=== PATIENT | female | born 1975 | race Caucasian/White ===

== ENCOUNTER 2019-05-28 09:04 | Inpatient (IN) | payer SELFPAY ==
[2019-05-28] VITALS (8 sets, daily range): BP systolic 114–153; BP diastolic 69–93
[~2019-05-28] VITALS: Ht 160 cm; Wt 94.3 kg
[2019-05-28] MEDS ORDERED: PANTOPRAZOLE IV PUSH 40 MG VIAL. IVP ONE (09:45)
[2019-05-28] MEDS ORDERED: ONDANSETRON PF 4 MG/2 ML VIAL. IV ONE (09:45)
[2019-05-28 09:49] LABS: BILIRUBIN,URINE NEGATIVE (NEG); CLARITY,URINE CLEAR; COLOR,URINE YELLOW; NITRITE,URINE NEGATIVE (NEG); PROTEIN,URINE NEGATIVE (NEG-TRACE)
[2019-05-28 09:57] LABS: BASO # 0.1 x10^3/uL (0.0-0.2); BASO % 1 % (0-3); EOS % 1 % (0-3); LYMPH % 23 % (24-48); MEAN CORPUSCULAR HEMOGLOBIN 18 pg (25-35); MEAN CORPUSCULAR HGB CONC 28 g/dL (31-37); MEAN CORPUSCULAR VOLUME 64 fL (79-100); MONO # 0.4 x10^3/uL (0.0-1.1); MONO % 10 % (0-9); NEUT # 2.7 x10^3/uL (1.8-7.7); NEUT % 64 % (31-73); PLATELET COUNT 206 x10^3/uL (140-400); RED BLOOD COUNT 2.29 x10^6/uL (3.50-5.40); RED CELL DISTRIBUTION WIDTH 22.7 % (11.5-14.5); WHITE BLOOD COUNT 4.2 x10^3/uL (4.0-11.0)
[2019-05-28 10:05] LABS: BACTERIA,URINE FEW /HPF (0-FEW); RBC,URINE 0 /HPF (0-2); SQUAMOUS EPITHELIAL CELL,UR FEW /LPF
--- NOTE | 2019-05-28 10:10 | RAD ---
PORTABLE CHEST 1V Clinical indications: Generalized weakness. Shortness of breath COMPARISON: None available. Findings: There is a radiodensity of the medial left lung base. Right lung field is clear. No pleural effusion or pneumothorax or perihilar pulmonary edema is seen. The heart size is prominent some of which is due to AP magnification and lordotic positioning. The pulmonary vasculature, mediastinum and both aron are unremarkable. Impression: Radiodensity of the medial left lung base. This could represent a lung infiltrate or lung mass or hiatal hernia. Chest CT with IV contrast is recommended for further evaluation. Electronically signed by: Edvin Swanson MD (05/28/2019 10:07 AM) [id number]
[2019-05-28 10:16] LABS: CALCIUM 8.4 mg/dL (8.5-10.1); CREATININE 0.7 mg/dL (0.6-1.0); GFR 90.5; POTASSIUM 3.8 mmol/L (3.5-5.1)
--- NOTE | 2019-05-28 10:18 | PHYS DOC ---
Past Medical History Past Medical History: Anemia, GERD Past Surgical History: , Tubal ligation Alcohol Use: Occasionally Drug Use: Marijuana, Methamphetamine Adult General Chief Complaint Chief Complaint: WEAKNESS/GENERALIZED HPI HPI Patient is a 43 year old female patient with history of hiatal hernia, GERD, anemia and previous blood transfusion who presents with complaint of generalized weakness and anemia. Patient states for the last 1 week she has had generalized weakness and decrease of energy associated with exertion or shortness of breath and palpitation and thinks she has no blood at needs blood transfusion. Patient states she had the same episode of anemia previously related to GI bleeding with hiatal hernia and GERD and had blood transfusion. Patient denies hematemesis and melena, hematuria, ecchymosis, chest pain, fever and chills, focal neuro deficit. Review of Systems Review of Systems Constitutional: Denies fever or chills, reports generalized weakness [] Eyes: Denies change in visual acuity, redness, or eye pain [] HENT: Denies nasal congestion or sore throat [] Respiratory: Denies cough, reports shortness of breath [] Cardiovascular: No additional information not addressed in HPI [] GI: Denies abdominal pain, nausea, vomiting, bloody stools or diarrhea [] : Denies dysuria or hematuria [] Musculoskeletal: Denies back pain or joint pain [] Integument: Denies rash or skin lesions [] Neurologic: Denies headache, focal weakness or sensory changes [] Endocrine: Denies polyuria or polydipsia [] All other systems were reviewed and found to be within normal limits, except as documented in this note. Current Medications Current Medications Current Medications Medications (Trade) Dose Ordered Sig/Royal Start Time Stop Time Status Last Admin Dose Admin Ondansetron HCl (Zofran) 4 mg 1X ONCE 05/28/19 09:45 05/28/19 09:46 DC 05/28/19 10:07 4 MG Pantoprazole Sodium (PROTONIX VIAL for IV PUSH) 40 mg 1X ONCE 05/28/19 09:45 05/28/19 09:46 DC 05/28/19 10:08 40 MG Allergies Allergies Allergies Coded Allergies Type Severity Reaction Last Updated Verified No Known Drug Allergies 05/28/19 No Physical Exam Physical Exam Constitutional: Well developed, well nourished, mild distress, non-toxic appearance, pallor. [] HENT: Normocephalic, atraumatic. Eyes: PERRLA, EOMI, conjunctiva normal, no discharge, pale .. [] Neck: Normal range of motion, no tenderness, supple, no stridor. [] Cardiovascular: Tachycardia, no murmur [] Lungs & Thorax: Bilateral breath sounds clear to auscultation [] Abdomen: Bowel sounds normal, soft, no tenderness, no masses, no pulsatile masses. Rectal exam in present of tail trimmer showed no gross blood. Skin: Warm, dry, no erythema, no rash. [] Back: No tenderness, no CVA tenderness. [] Extremities: No tenderness, no cyanosis, no clubbing, ROM intact, no edema. [] Neurologic: Alert and oriented X 3, no focal deficits noted. [] Psychologic: Affect normal, judgement normal, mood normal. [] Current Patient Data Vital Signs Vital Signs Date Time Temp Pulse Resp B/P (MAP) Pulse Ox O2 Delivery O2 Flow Rate FiO2 05/28/19 09:50 106 20 98 05/28/19 09:28 97.8 153/96 (115) Room Air 97.8 Lab Values Laboratory Tests Test 05/28/19 09:25 05/28/19 09:26 05/28/19 09:45 Urine Collection Type Unknown Urine Color Yellow Urine Clarity Clear Urine pH 6.0 Urine Specific [place] 1.015 Urine Protein Negative mg/dL (NEG-TRACE) Urine Glucose (UA) Negative mg/dL (NEG) Urine Ketones (Stick) Negative mg/dL (NEG) Urine Blood Negative (NEG) Urine Nitrite Negative (NEG) Urine Bilirubin Negative (NEG) Urine Urobilinogen Dipstick 1.0 mg/dL (0.2 mg/dL) Urine Leukocyte Esterase Trace (NEG) Urine RBC 0 /HPF (0-2) Urine WBC 1-4 /HPF (0-4) Urine Squamous Epithelial Cells Few /LPF Urine Bacteria Few /HPF (0-FEW) Urine Mucus Marked /LPF POC Urine HCG, Qualitative Hcg negative (Negative) White Blood Count 4.2 x10^3/uL (4.0-11.0) Red Blood Count 2.28 x10^6/uL (3.50-5.70) L Hemoglobin 4.1 g/dL (12.0-15.5) *L Hematocrit 14.7 % (36.0-47.0) *L Mean Corpuscular Volume 64 fL (79-100) L Mean Corpuscular Hemoglobin 18 pg (25-35) L Mean Corpuscular Hemoglobin Concent 28 g/dL (31-37) L Red Cell Distribution Width 22.7 % (11.5-14.5) H Platelet Count 206 x10^3/uL (140-400) Neutrophils (%) (Auto) 64 % (31-73) Lymphocytes (%) (Auto) 23 % (24-48) L Monocytes (%) (Auto) 10 % (0-9) H Eosinophils (%) (Auto) 1 % (0-3) Basophils (%) (Auto) 1 % (0-3) Neutrophils # (Auto) 2.7 x10^3/uL (1.8-7.7) Lymphocytes # (Auto) 1.0 x10^3/uL (1.0-4.8) Monocytes # (Auto) 0.4 x10^3/uL (0.0-1.1) Eosinophils # (Auto) 0.0 x10^3/uL (0.0-0.7) Basophils # (Auto) 0.1 x10^3/uL (0.0-0.2) Platelet Estimate Adequate (ADEQUATE) Polychromasia Present Hypochromasia Present Poikilocytosis Present Anisocytosis Present Microcytosis Present Macrocytosis Present Ovalocytes Present Absolute Reticulocyte Count 0.123 x10^6/uL (0.020-0.120) Percent Reticulocyte Count 5.4 % (0.5-2.3) H Immature Reticulocyte Fraction 0.59 (0.20-0.60) Prothrombin Time 13.4 SEC (11.7-14.0) Prothrombin Time INR 1.1 (0.8-1.1) Activated Partial Thromboplast Time 29 SEC (24-38) Sodium Level 139 mmol/L (136-145) Potassium Level 3.8 mmol/L (3.5-5.1) Chloride Level 103 mmol/L (98-107) Carbon Dioxide Level 25 mmol/L (21-32) Anion Gap 11 (6-14) Blood Urea Nitrogen 17 mg/dL (7-20) Creatinine 0.7 mg/dL (0.6-1.0) Estimated GFR (Cockcroft-Gault) 90.5 BUN/Creatinine Ratio 24 (6-20) H Glucose Level 115 mg/dL (70-99) H Calcium Level 8.4 mg/dL (8.5-10.1) L Iron Level 12 ug/dL (50-170) L Total Iron Binding Capacity 650 ug/dL (250-450) H Iron Saturation 2 % (15-34) L Total Bilirubin 0.8 mg/dL (0.2-1.0) Aspartate Amino Transferase (AST) 14 U/L (15-37) L Alanine Aminotransferase (ALT) 11 U/L (14-59) L Alkaline Phosphatase 98 U/L (46-116) Troponin I Quantitative < 0.017 ng/mL (0.000-0.055) XE-Hbp-O-Type Natriuretic Peptide 1444 pg/mL (0-124) H Total Protein 7.0 g/dL (6.4-8.2) Albumin 3.2 g/dL (3.4-5.0) L Albumin/Globulin Ratio 0.8 (1.0-1.7) L Lipase 86 U/L (73-393) Vitamin B12 Level 312 pg/mL (247-911) Laboratory Tests 05/28/19 09:45 Laboratory Tests 05/28/19 09:45 EKG EKG EKG interpreted by me. EKG at 0931 showed sinus tachycardia at rate of 102, normal [place] and QT intervals, abnormal left axis deviation, left anterior fascicular block, LVH, poor R-wave progress in anteroseptal leads, no acute ST and T-wave elevation. Radiology/Procedures Radiology/Procedures [facility] [address] [place] [address] IMAGING REPORT Signed PATIENT: YUMIKO INIGUEZ ACCOUNT: [id number] : 1975 LOCATION: ER AGE: 43 SEX: F EXAM STATUS: REG ER ORD. PHYSICIAN: ESTELITA HERNANDEZ MD REASON: generalized weakness, shortness of breath PROCEDURE: PORTABLE CHEST 1V PORTABLE CHEST 1V Clinical indications: Generalized weakness. Shortness of breath COMPARISON: None available. Findings: There is a radiodensity of the medial left lung base. Right lung field is clear. No pleural effusion or pneumothorax or perihilar pulmonary edema is seen. The heart size is prominent some of which is due to AP magnification and lordotic positioning. The pulmonary vasculature, mediastinum and both aron are unremarkable. Impression: Radiodensity of the medial left lung base. This could represent a lung infiltrate or lung mass or hiatal hernia. Chest CT with IV contrast is recommended for further evaluation. Electronically signed by: Josselin Swanson MD (05/28/2019 10:07 AM) [id number] DICTATED and SIGNED BY: JOSSELIN SWANSON MD DATE: 05/28/19 1007 Course & Med Decision Making Course & Med Decision Making Pertinent Labs and Imaging studies reviewed. (See chart for details) Evaluation of patient in ER showed 43-year-old female patient with history of blood transfusion presented with complaining of vomiting which weakness and exertional shortness of breath and palpitations without chest pain. Patient had hemoglobin of 4.6 and blood for transfusion was requested.Patient requiring admission for further evaluation and treatment. Discussed with Dr. Sevilla who is in agreement with admission. Discussed findings and plan with patient and family, who acknowledge understanding and agreement. Dragon Disclaimer Dragon Disclaimer This electronic medical record was generated, in whole or in part, using a voice recognition dictation system. Departure Departure Impression: Primary Impression: Severe anemia Additional Impressions: Hypoalbuminemia Elevated brain natriuretic peptide (BNP) level Disposition: ADMITTED INPATIENT (@1028) Admitting Physician: ZEYNEP (Dr. Sevilla accepted admission at 1027) Condition: STABLE Referrals: NO PCP (PCP) Problem Qualifiers ESTELITA HERNANDEZ MD May 28, 2019 10:18
[2019-05-28 10:20] LABS: HEMATOCRIT 14.7 % (36.0-47.0); HEMOGLOBIN 4.1 g/dL (12.0-15.5)
[2019-05-28 10:25] LABS: ALBUMIN 3.2 g/dL (3.4-5.0); ALBUMIN/GLOBULIN RATIO 0.8 (1.0-1.7); TOTAL BILIRUBIN 0.8 mg/dL (0.2-1.0)
[2019-05-28 10:33] LABS: ANISOCYTOSIS PRESENT; HYPOCHROMIA PRESENT; MICROCYTOSIS PRESENT; OVALOCYTES PRESENT; PLT ESTIMATE ADEQUATE (ADEQUATE); POIKILOCYTOSIS PRESENT; POLYCHROMASIA PRESENT
[2019-05-28 10:40] LABS: PROTHROMBIN TIME PATIENT 13.4 SEC (11.7-14.0)
--- NOTE | 2019-05-28 11:09 | EKG ---
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
[2019-05-28] MEDS: PANTOPRAZOLE SODIUM IV DRIP 80 MG in IV NORMAL SALINE 100ML 100 ML IV SCH (11:21)
[2019-05-28] MEDS: IV NORMAL SALINE 1000ML BAG 1,000 ML IV SCH ×2 (11:21→23:55)
[2019-05-28 11:42] LABS: FECAL OB PT NEGATIVE (NEG)
--- NOTE | 2019-05-28 13:08 | PDOC2 ---
GI CONSULT Reason For Consult: hemoglobin 4.1, h/o GERD and hiatal hernia HPI: HPI: 43 y/o female seen in ER. Ill for about a week w/ weakness, bodyaches, and some shortness of breath. Not ed w/ profound anemia - Hgb 4.1, MCV 64, BUN 17, and negative Hemoccult. Chart indicates h/o GI bleeding requiring transfusions. She denies obvious bleeding - now or in the past - including hematemesis, hematochezia, and melena. She reports previous evaluation at for anemia w/ EGD - can't really remember when, maybe a year ago or so. Reports h/o "esophagus all tore up" and hiatal hernia - "I guess that's where the blood goes" (?Fredy lesions). Might have had transfusions then but really not sure. Surgery (?hiatal hernia repair) recommended at that time but she has been unable to pursue that due to financial reasons, uninsured, etc. Also went to [facility] once (again, timing unclear) but "I didn't have an address so they couldn't help me." Doesn't think she had an EGD or transfusion then. At some point, iron supplements were recommended but she doesn't take them due to cost. Has remained on Protonix QD "for 7 years." Helps w/ reflux. Denies dysphagia, n/v, change in appetite or weight, abd pain, or constipation. Has diarrhea "every now and then" and had some "the other day." No previous colonoscopy. No GB, liver, pancreas, or PUD history. No NSAIDs - "ibuprofen really upsets my stomach." Reports h/o heavy periods - monthly, lasting "a few days," and uses about 5 pads per day. Currently living with a friend and says "I'm a drug addict" - used meth about 1 week ago "but you'll mostly just find weed when you check." PMH: PMH: GERD, hiatal hernia, anemia, substance abuse , tubal ligation FH: Family History: No pertinent hx Social History: Smoke: 1 pack per day ALCOHOL: none Drugs: Marijuana, Crystal meth ROS: GEN: +fatigue HEENT: Denies blurred vision, sore throat CV: Denies chest pain RESP: +SOA GI: Per HPI : Denies hematuria, dysuria ENDO: Denies weight changes NEURO: Denies confusion, dizziness MSK: +bodyaches SKIN: Denies jaundice, pruritus Vitals: Vitals: Vital Signs Date Time Temp Pulse Resp B/P (MAP) Pulse Ox O2 Delivery O2 Flow Rate FiO2 05/28/19 10:50 101 20 97 05/28/19 09:28 97.8 153/96 (115) Room Air 97.8 Labs: Labs: Laboratory Tests Test 05/28/19 09:25 05/28/19 09:26 05/28/19 09:45 05/28/19 10:21 Urine Collection Type Unknown Urine Color Yellow Urine Clarity Clear Urine pH 6.0 Urine Specific [place] 1.015 Urine Protein Negative mg/dL (NEG-TRACE) Urine Glucose (UA) Negative mg/dL (NEG) Urine Ketones (Stick) Negative mg/dL (NEG) Urine Blood Negative (NEG) Urine Nitrite Negative (NEG) Urine Bilirubin Negative (NEG) Urine Urobilinogen Dipstick 1.0 mg/dL (0.2 mg/dL) Urine Leukocyte Esterase Trace (NEG) Urine RBC 0 /HPF (0-2) Urine WBC 1-4 /HPF (0-4) Urine Squamous Epithelial Cells Few /LPF Urine Bacteria Few /HPF (0-FEW) Urine Mucus Marked /LPF Bedside Urine HCG, Qualitative Hcg negative (Negative) White Blood Count 4.2 x10^3/uL (4.0-11.0) Red Blood Count 2.29 x10^6/uL (3.50-5.40) Hemoglobin 4.1 g/dL (12.0-15.5) Hematocrit 14.7 % (36.0-47.0) Mean Corpuscular Volume 64 fL (79-100) Mean Corpuscular Hemoglobin 18 pg (25-35) Mean Corpuscular Hemoglobin Concent 28 g/dL (31-37) Red Cell Distribution Width 22.7 % (11.5-14.5) Platelet Count 206 x10^3/uL (140-400) Neutrophils (%) (Auto) 64 % (31-73) Lymphocytes (%) (Auto) 23 % (24-48) Monocytes (%) (Auto) 10 % (0-9) Eosinophils (%) (Auto) 1 % (0-3) Basophils (%) (Auto) 1 % (0-3) Neutrophils # (Auto) 2.7 x10^3/uL (1.8-7.7) Lymphocytes # (Auto) 1.0 x10^3/uL (1.0-4.8) Monocytes # (Auto) 0.4 x10^3/uL (0.0-1.1) Eosinophils # (Auto) 0.0 x10^3/uL (0.0-0.7) Basophils # (Auto) 0.1 x10^3/uL (0.0-0.2) Platelet Estimate Adequate (ADEQUATE) Polychromasia Present Hypochromasia Present Poikilocytosis Present Anisocytosis Present Microcytosis Present Macrocytosis Present Ovalocytes Present Prothrombin Time 13.4 SEC (11.7-14.0) Prothromb Time International Ratio 1.1 (0.8-1.1) Activated Partial Thromboplast Time 29 SEC (24-38) Sodium Level 139 mmol/L (136-145) Potassium Level 3.8 mmol/L (3.5-5.1) Chloride Level 103 mmol/L (98-107) Carbon Dioxide Level 25 mmol/L (21-32) Anion Gap 11 (6-14) Blood Urea Nitrogen 17 mg/dL (7-20) Creatinine 0.7 mg/dL (0.6-1.0) Estimated GFR (Cockcroft-Gault) 90.5 BUN/Creatinine Ratio 24 (6-20) Glucose Level 115 mg/dL (70-99) Calcium Level 8.4 mg/dL (8.5-10.1) Total Bilirubin 0.8 mg/dL (0.2-1.0) Aspartate Amino Transf (AST/SGOT) 14 U/L (15-37) Alanine Aminotransferase (ALT/SGPT) 11 U/L (14-59) Alkaline Phosphatase 98 U/L (46-116) Troponin I Quantitative < 0.017 ng/mL (0.000-0.055) KV-Bdu-R-Type Natriuretic Peptide 1444 pg/mL (0-124) Total Protein 7.0 g/dL (6.4-8.2) Albumin 3.2 g/dL (3.4-5.0) Albumin/Globulin Ratio 0.8 (1.0-1.7) Lipase 86 U/L (73-393) Stool Occult Blood Negative (NEG) Allergies: Coded Allergies: No Known Drug Allergies (Unverified , 05/28/19) Medications: Current Medications Medications (Trade) Dose Ordered Sig/Royal Route PRN Reason Start Time Stop Time Status Last Admin Dose Admin Pantoprazole Sodium (PROTONIX VIAL for IV PUSH) 40 mg 1X ONCE IVP 05/28/19 09:45 05/28/19 09:46 DC 05/28/19 10:08 Ondansetron HCl (Zofran) 4 mg 1X ONCE IV 05/28/19 09:45 05/28/19 09:46 DC 05/28/19 10:07 Sodium Chloride 1,000 ml @ 100 mls/hr Q10H IV 05/28/19 11:00 05/29/19 10:59 05/28/19 11:21 Pantoprazole Sodium 80 mg/ Sodium Chloride 100 ml @ 10 mls/hr Q10H IV 05/28/19 12:00 05/28/19 11:21 Imaging: Imaging: CXR 05/28 Impression: Radiodensity of the medial left lung base. This could represent a lung infiltrate or lung mass or hiatal hernia. Chest CT with IV contrast is recommended for further evaluation. PE: GEN: NAD HEENT: Atraumatic, PERRL LUNGS: CTAB HEART: borderline tachycardia ABD: NABS, S/ND/NT EXTREMITY: No edema SKIN: No rashes, no jaundice NEURO/PSYCH: A & O 3, drowsy A/P: A/P: Weakness/fatigue, SOA Microcytic anemia - h/o anemia requiring transfusions in the past w/ recommendations for ?hiatal hernia repair and iron supplementation Elevated BNP, abnormal CXR H/o GERD and hiatal hernia CRC screen - none Substance abuse -- Check anemia parameters and tox screen. Agree w/ transfusions. Agree w/ PPI - could probably have PO instead of drip and consider clear liquids this evening. Will ask for records from [facility]. Reviewed w/ Dr. Briggs - hold on EGD for now, check CT chest. ADRI OLIVARES May 28, 2019 13:08
--- NOTE | 2019-05-28 13:27 | PDOC1 ---
History and Physical Date of Admission Date of Admission DATE: 05/28/19 TIME: 13:26 Identification/Chief Complaint Chief Complaint Patient is a 43 year old female who presents with severe anemia ///used meth about 1 week ago " no insurance, so has not had close follow up Past Medical History Past Medical History Past Medical History Past Medical History Past Medical History: Anemia, GERD Past Surgical History: , Tubal ligation Alcohol Use: Occasionally Drug Use: Marijuana, Methamphetamine FHX OBESITY Family History Family History: High Cholestrol, Hypertension Social History Smoke: 1 pack per day ALCOHOL: none Drugs: Marijuana, Crystal meth Current Problem List Problem List Problems Medical Problems: (1) Hypoalbuminemia Status: Acute (2) Severe anemia Status: Acute Current Medications Current Medications Current Medications Pantoprazole Sodium (PROTONIX VIAL for IV PUSH) 40 mg 1X ONCE IVP Last administered on 05/28/19at 10:08; Start 05/28/19 at 09:45; Stop 05/28/19 at 09:46; Status DC Ondansetron HCl (Zofran) 4 mg 1X ONCE IV Last administered on 05/28/19at 10:07; Start 05/28/19 at 09:45; Stop 05/28/19 at 09:46; Status DC Sodium Chloride 1,000 ml @ 100 mls/hr Q10H IV Last administered on 05/28/19at 11:21; Start 05/28/19 at 11:00; Stop 05/29/19 at 10:59 Pantoprazole Sodium 80 mg/ Sodium Chloride 100 ml @ 10 mls/hr Q10H IV Last administered on 05/28/19at 11:21; Start 05/28/19 at 12:00 Allergies Allergies: Coded Allergies: No Known Drug Allergies (Unverified , 05/28/19) ROS Review of System Review of Systems Review of Systems Constitutional: Denies fever or chills [] Eyes: Denies change in visual acuity, redness, or eye pain [] HENT: Denies nasal congestion or sore throat [] Respiratory: Denies cough or shortness of breath [] Cardiovascular: No additional information not addressed in HPI [] GI: Denies abdominal pain, nausea, vomiting, bloody stools or diarrhea [] : Denies dysuria or hematuria [] Musculoskeletal: Denies back pain or joint pain [] Integument: Denies rash or skin lesions [] Neurologic: Denies headache, focal weakness or sensory changes [] Endocrine: Denies polyuria or polydipsia [] 14 PT systems were reviewed and found to be within normal limits, except as documented . Musculoskeletal: Yes Joint Stiffness Physical Exam Physical Exam Physical Exam Physical Exam Constitutional: Well developed, well nourished, no acute distress, non-toxic appearance. [] HENT: Normocephalic, atraumatic, bilateral external ears normal, oropharynx moist, no oral exudates, nose normal. [] Eyes: PERRLA, EOMI, conjunctiva normal, no discharge. [] Neck: Normal range of motion, no tenderness, supple, no stridor. [] Cardiovascular:Heart rate regular rhythm, no murmur [] Lungs & Thorax: Bilateral breath sounds clear to auscultation [] Abdomen: Bowel sounds normal, soft, no tenderness, no masses, no pulsatile masses. [] Skin: Warm, dry, no erythema, no rash. [] Back: No tenderness, no CVA tenderness. [] Extremities: No tenderness, no cyanosis, no clubbing, ROM intact, no edema. [] Neurologic: Alert and oriented X 3, normal motor function, normal sensory function, no focal deficits noted. [] Psychologic: Affect normal, judgement normal, mood normal. [] General: Alert, Oriented X3, Cooperative, No acute distress HEENT: Atraumatic, PERRLA, EOMI, Mucous membr. moist/pink Lungs: Normal air movement Heart: no gallops Breasts: Not examined Abdomen: Soft, No tenderness Rectal Exam: not examined PELVIC: Examination not indicated Extremities: No cyanosis Skin: No significant lesion Neuro: Normal speech, Cranial nerves 3-12 NL Psych/Mental Status: Mental status NL, Mood NL Vitals Vitals Vital Signs Date Time Temp Pulse Resp B/P (MAP) Pulse Ox O2 Delivery O2 Flow Rate FiO2 05/28/19 13:21 97.8 97 18 114/74 97.8 05/28/19 10:50 97 05/28/19 09:28 Room Air Labs Labs Laboratory Tests Test 05/28/19 09:25 05/28/19 09:26 05/28/19 09:45 05/28/19 10:21 Urine Collection Type Unknown Urine Color Yellow Urine Clarity Clear Urine pH 6.0 Urine Specific Chandler 1.015 Urine Protein Negative mg/dL (NEG-TRACE) Urine Glucose (UA) Negative mg/dL (NEG) Urine Ketones (Stick) Negative mg/dL (NEG) Urine Blood Negative (NEG) Urine Nitrite Negative (NEG) Urine Bilirubin Negative (NEG) Urine Urobilinogen Dipstick 1.0 mg/dL (0.2 mg/dL) Urine Leukocyte Esterase Trace (NEG) Urine RBC 0 /HPF (0-2) Urine WBC 1-4 /HPF (0-4) Urine Squamous Epithelial Cells Few /LPF Urine Bacteria Few /HPF (0-FEW) Urine Mucus Marked /LPF Bedside Urine HCG, Qualitative Hcg negative (Negative) White Blood Count 4.2 x10^3/uL (4.0-11.0) Red Blood Count 2.29 x10^6/uL (3.50-5.40) Hemoglobin 4.1 g/dL (12.0-15.5) Hematocrit 14.7 % (36.0-47.0) Mean Corpuscular Volume 64 fL (79-100) Mean Corpuscular Hemoglobin 18 pg (25-35) Mean Corpuscular Hemoglobin Concent 28 g/dL (31-37) Red Cell Distribution Width 22.7 % (11.5-14.5) Platelet Count 206 x10^3/uL (140-400) Neutrophils (%) (Auto) 64 % (31-73) Lymphocytes (%) (Auto) 23 % (24-48) Monocytes (%) (Auto) 10 % (0-9) Eosinophils (%) (Auto) 1 % (0-3) Basophils (%) (Auto) 1 % (0-3) Neutrophils # (Auto) 2.7 x10^3/uL (1.8-7.7) Lymphocytes # (Auto) 1.0 x10^3/uL (1.0-4.8) Monocytes # (Auto) 0.4 x10^3/uL (0.0-1.1) Eosinophils # (Auto) 0.0 x10^3/uL (0.0-0.7) Basophils # (Auto) 0.1 x10^3/uL (0.0-0.2) Platelet Estimate Adequate (ADEQUATE) Polychromasia Present Hypochromasia Present Poikilocytosis Present Anisocytosis Present Microcytosis Present Macrocytosis Present Ovalocytes Present Prothrombin Time 13.4 SEC (11.7-14.0) Prothromb Time International Ratio 1.1 (0.8-1.1) Activated Partial Thromboplast Time 29 SEC (24-38) Sodium Level 139 mmol/L (136-145) Potassium Level 3.8 mmol/L (3.5-5.1) Chloride Level 103 mmol/L (98-107) Carbon Dioxide Level 25 mmol/L (21-32) Anion Gap 11 (6-14) Blood Urea Nitrogen 17 mg/dL (7-20) Creatinine 0.7 mg/dL (0.6-1.0) Estimated GFR (Cockcroft-Gault) 90.5 BUN/Creatinine Ratio 24 (6-20) Glucose Level 115 mg/dL (70-99) Calcium Level 8.4 mg/dL (8.5-10.1) Total Bilirubin 0.8 mg/dL (0.2-1.0) Aspartate Amino Transf (AST/SGOT) 14 U/L (15-37) Alanine Aminotransferase (ALT/SGPT) 11 U/L (14-59) Alkaline Phosphatase 98 U/L (46-116) Troponin I Quantitative < 0.017 ng/mL (0.000-0.055) AZ-Loi-E-Type Natriuretic Peptide 1444 pg/mL (0-124) Total Protein 7.0 g/dL (6.4-8.2) Albumin 3.2 g/dL (3.4-5.0) Albumin/Globulin Ratio 0.8 (1.0-1.7) Lipase 86 U/L (73-393) Stool Occult Blood Negative (NEG) Laboratory Tests Test 05/28/19 09:25 05/28/19 09:26 05/28/19 09:45 05/28/19 10:21 Urine Collection Type Unknown Urine Color Yellow Urine Clarity Clear Urine pH 6.0 Urine Specific Chandler 1.015 Urine Protein Negative mg/dL (NEG-TRACE) Urine Glucose (UA) Negative mg/dL (NEG) Urine Ketones (Stick) Negative mg/dL (NEG) Urine Blood Negative (NEG) Urine Nitrite Negative (NEG) Urine Bilirubin Negative (NEG) Urine Urobilinogen Dipstick 1.0 mg/dL (0.2 mg/dL) Urine Leukocyte Esterase Trace (NEG) Urine RBC 0 /HPF (0-2) Urine WBC 1-4 /HPF (0-4) Urine Squamous Epithelial Cells Few /LPF Urine Bacteria Few /HPF (0-FEW) Urine Mucus Marked /LPF Bedside Urine HCG, Qualitative Hcg negative (Negative) White Blood Count 4.2 x10^3/uL (4.0-11.0) Red Blood Count 2.29 x10^6/uL (3.50-5.40) Hemoglobin 4.1 g/dL (12.0-15.5) Hematocrit 14.7 % (36.0-47.0) Mean Corpuscular Volume 64 fL (79-100) Mean Corpuscular Hemoglobin 18 pg (25-35) Mean Corpuscular Hemoglobin Concent 28 g/dL (31-37) Red Cell Distribution Width 22.7 % (11.5-14.5) Platelet Count 206 x10^3/uL (140-400) Neutrophils (%) (Auto) 64 % (31-73) Lymphocytes (%) (Auto) 23 % (24-48) Monocytes (%) (Auto) 10 % (0-9) Eosinophils (%) (Auto) 1 % (0-3) Basophils (%) (Auto) 1 % (0-3) Neutrophils # (Auto) 2.7 x10^3/uL (1.8-7.7) Lymphocytes # (Auto) 1.0 x10^3/uL (1.0-4.8) Monocytes # (Auto) 0.4 x10^3/uL (0.0-1.1) Eosinophils # (Auto) 0.0 x10^3/uL (0.0-0.7) Basophils # (Auto) 0.1 x10^3/uL (0.0-0.2) Platelet Estimate Adequate (ADEQUATE) Polychromasia Present Hypochromasia Present Poikilocytosis Present Anisocytosis Present Microcytosis Present Macrocytosis Present Ovalocytes Present Prothrombin Time 13.4 SEC (11.7-14.0) Prothromb Time International Ratio 1.1 (0.8-1.1) Activated Partial Thromboplast Time 29 SEC (24-38) Sodium Level 139 mmol/L (136-145) Potassium Level 3.8 mmol/L (3.5-5.1) Chloride Level 103 mmol/L (98-107) Carbon Dioxide Level 25 mmol/L (21-32) Anion Gap 11 (6-14) Blood Urea Nitrogen 17 mg/dL (7-20) Creatinine 0.7 mg/dL (0.6-1.0) Estimated GFR (Cockcroft-Gault) 90.5 BUN/Creatinine Ratio 24 (6-20) Glucose Level 115 mg/dL (70-99) Calcium Level 8.4 mg/dL (8.5-10.1) Total Bilirubin 0.8 mg/dL (0.2-1.0) Aspartate Amino Transf (AST/SGOT) 14 U/L (15-37) Alanine Aminotransferase (ALT/SGPT) 11 U/L (14-59) Alkaline Phosphatase 98 U/L (46-116) Troponin I Quantitative < 0.017 ng/mL (0.000-0.055) BD-Jdo-L-Type Natriuretic Peptide 1444 pg/mL (0-124) Total Protein 7.0 g/dL (6.4-8.2) Albumin 3.2 g/dL (3.4-5.0) Albumin/Globulin Ratio 0.8 (1.0-1.7) Lipase 86 U/L (73-393) Stool Occult Blood Negative (NEG) Images Images PORTABLE CHEST 1V Clinical indications: Generalized weakness. Shortness of breath COMPARISON: None available. Findings: There is a radiodensity of the medial left lung base. Right lung field is clear. No pleural effusion or pneumothorax or perihilar pulmonary edema is seen. The heart size is prominent some of which is due to AP magnification and lordotic positioning. The pulmonary vasculature, mediastinum and both aron are unremarkable. Impression: Radiodensity of the medial left lung base. This could represent a lung infiltrate or lung mass or hiatal hernia. Chest CT with IV contrast is recommended for further evaluation. Electronically signed by: Edvin Swanson MD (05/28/2019 10:07 AM) [id number] EXAM: Chest CT with intravenous contrast. HISTORY: Abnormal chest radiograph. TECHNIQUE: Computed tomographic images of the chest were obtained following the administration of 75 cc Omnipaque 300 intravenous contrast. Multiplanar reformatting was performed. *One or more of the following individualized dose reduction techniques were utilized for this examination: 1. Automated exposure control. 2. Adjustment of the mA and/or kV according to patient size. 3. Use of iterative reconstruction technique. COMPARISON: Chest radiograph obtained on the same date. CT dated 11/08/2017. FINDINGS: There is a large hiatal hernia with intrathoracic positioning of a portion of the stomach and portion of the pancreas. The heart is normal in size. The aorta is normal in caliber. There are prominent mediastinal lymph nodes. For reference purposes, there is a subcarinal lymph node measuring 1.2 cm. There is no pneumothorax. There is no pleural effusion. There is lingular and right middle lobe atelectasis or scarring. There is also left basilar compressive atelectasis due to the aforementioned hiatal hernia. There is right posterior dependent and basilar atelectasis. There is no infiltrate or suspicious pulmonary nodule. There is no acute finding involving the upper abdomen. There is no suspicious osseous lesion. IMPRESSION: 1. Large hiatal hernia with intrathoracic positioning of a portion of the stomach and pancreas. This is similar compared to the CT dated 11/08/2017. 2. Left basilar compressive atelectasis. There is also bilateral basilar and posterior dependent atelectasis and right middle lobe and lingular atelectasis or scarring. The stable appearance. 3. Nonspecific mildly prominent mediastinal lymph nodes. These are not pathologically enlarged and may be physiologic or reactive in etiology. Electronically signed by: Lisa Arellano MD (05/28/2019 5:01 PM) [place] [id number] VTE Prophylaxis Ordered VTE Prophylaxis Devices: Yes VTE Pharmacological Prophylaxi: Contraindicated Assessment/Plan Assessment/Plan IMPRESSION: 1. Large hiatal hernia with intrathoracic positioning of a portion of the stomach and pancreas. This is similar compared to the CT dated 11/08/2017. 2. Left basilar compressive atelectasis. There is also bilateral basilar and posterior dependent atelectasis and right middle lobe and lingular atelectasis or scarring. 3, severe anemia , microcytic 4, POLY- substance abuse, meth and THC 5. MORBID OBESITY 6. HX PUD 7, [place] plan admit gi consult transfuse. to hgb 7.5-8 iv protonix records from [facility] [employer]ANIC CONSULT IF FIBROID UTERUS FOUND POOR PROGNOSIS DUE TO DRUG ABUSE 55 MIN PT EXAM, CHART REVIEW, > 50% OF TIME SPENT WITH EXAM, CHART REVIEW, PT CARE COORDINATION FULBRIGHT,STONE W MD May 28, 2019 13:27
[2019-05-28] MEDS ORDERED: CONTRAST GIVEN. MC PRN (14:00)
[2019-05-28] MEDS ORDERED: IOHEXOL 300 MG/ML 100ML VIAL. IV ONE (14:00)
[2019-05-28] MEDS ORDERED: PANT20TA2 PO (15:58)
[2019-05-28 16:08] LABS: BARBITURATES NEG (NEG); BENZODIAZEPINES NEG (NEG); CANNABINOIDS NEG (NEG); COCAINE NEG (NEG); METHADONE NEG (NEG); OPIATES NEG (NEG); PHENCYCLIDINE NEG (NEG)
[2019-05-28 16:12] LABS: AMPHETAMINE/METHAMPHETAMINE NEG (NEG)
[2019-05-28 16:33] LABS: HEMATOCRIT 17.4 % (36.0-47.0); HEMOGLOBIN 5.2 g/dL (12.0-15.5)
--- NOTE | 2019-05-28 17:05 | RAD ---
EXAM: Chest CT with intravenous contrast. HISTORY: Abnormal chest radiograph. TECHNIQUE: Computed tomographic images of the chest were obtained following the administration of 75 cc Omnipaque 300 intravenous contrast. Multiplanar reformatting was performed. *One or more of the following individualized dose reduction techniques were utilized for this examination: 1. Automated exposure control. 2. Adjustment of the mA and/or kV according to patient size. 3. Use of iterative reconstruction technique. COMPARISON: Chest radiograph obtained on the same date. CT dated 11/08/2017. FINDINGS: There is a large hiatal hernia with intrathoracic positioning of a portion of the stomach and portion of the pancreas. The heart is normal in size. The aorta is normal in caliber. There are prominent mediastinal lymph nodes. For reference purposes, there is a subcarinal lymph node measuring 1.2 cm. There is no pneumothorax. There is no pleural effusion. There is lingular and right middle lobe atelectasis or scarring. There is also left basilar compressive atelectasis due to the aforementioned hiatal hernia. There is right posterior dependent and basilar atelectasis. There is no infiltrate or suspicious pulmonary nodule. There is no acute finding involving the upper abdomen. There is no suspicious osseous lesion. IMPRESSION: 1. Large hiatal hernia with intrathoracic positioning of a portion of the stomach and pancreas. This is similar compared to the CT dated 11/08/2017. 2. Left basilar compressive atelectasis. There is also bilateral basilar and posterior dependent atelectasis and right middle lobe and lingular atelectasis or scarring. The stable appearance. 3. Nonspecific mildly prominent mediastinal lymph nodes. These are not pathologically enlarged and may be physiologic or reactive in etiology. Electronically signed by: Lisa Arellano MD (05/28/2019 5:01 PM) [place] [id number]
[2019-05-28 19:59] LABS: HEMATOCRIT 18.8 % (36.0-47.0); HEMOGLOBIN 5.6 g/dL (12.0-15.5)
[2019-05-28] MEDS ORDERED: FLU VAX QS 2019-20 (36MOS+)/PF 0.5 ML SYRINGE. VAX IM ONE (21:00)
[2019-05-29] VITALS (12 sets, daily range): BP systolic 117–139; BP diastolic 47–95
[2019-05-29] MEDS: PANTOPRAZOLE SODIUM IV DRIP 80 MG in IV NORMAL SALINE 100ML 100 ML IV SCH ×2 (00:02→09:26)
--- NOTE | 2019-05-29 01:19 | NUR ---
patient stated that she did not want to take her flu vaccine on 05/28/2019 at 2100, patient stated that she wanted to wait until the next day 05/29/2019, after her blood transfusions.
--- NOTE | 2019-05-29 02:13 | RAD ---
Complete pelvic ultrasound HISTORY: Menorrhagia. FINDINGS: Transabdominal transducer and transvaginal transducers were utilized. Transabdominal imaging demonstrates anteverted uterus measuring 12.5 x 7.4 x 8.9 cm. There are ill-defined masses of the uterine myometrium typical of leiomyomas. Right ovary measures 3.2 x 3.3 x 3.4 cm with a 3 cm dominant follicle. Intact right ovarian blood flow. Left ovary not visualized transabdominal. Endometrium poorly visualized with a thickness not measured by the glass technician/installer, on transverse imaging a portion of the endometrium may be visualized displaced posteriorly by anterior wall leiomyomas, endometrial approximate thickness of 0.6 cm. Transvaginal imaging demonstrates anteverted uterus. Shadowing limits visualization of much of the uterus. Endometrium not visualized. Ovaries not visualized. IMPRESSION: Ill-defined uterine myometrial masses likely numerous leiomyomas. 3 cm dominant follicle right ovary. Endometrium is poorly visualized and likely compressed and effaced by leiomyomas. Electronically signed by: Rambo Ignacio MD (05/29/2019 2:10 AM) [id number]
[2019-05-29] MEDS: IV NORMAL SALINE 1000ML BAG 1,000 ML IV SCH (08:03)
[2019-05-29 08:41] LABS: BASO # 0.1 x10^3/uL (0.0-0.2); BASO % 1 % (0-3); EOS # 0.1 x10^3/uL (0.0-0.7); EOS % 1 % (0-3); HEMATOCRIT 25.6 % (36.0-47.0); HEMOGLOBIN 7.9 g/dL (12.0-15.5); LYMPH # 0.7 x10^3/uL (1.0-4.8); LYMPH % 11 % (24-48); MEAN CORPUSCULAR HEMOGLOBIN 23 pg (25-35); MEAN CORPUSCULAR HGB CONC 31 g/dL (31-37); MEAN CORPUSCULAR VOLUME 74 fL (79-100); MONO # 0.5 x10^3/uL (0.0-1.1); MONO % 8 % (0-9); NEUT # 5.1 x10^3/uL (1.8-7.7); NEUT % 80 % (31-73); PLATELET COUNT 167 x10^3/uL (140-400); RED BLOOD COUNT 3.47 x10^6/uL (3.50-5.40); RED CELL DISTRIBUTION WIDTH 26.7 % (11.5-14.5); WHITE BLOOD COUNT 6.4 x10^3/uL (4.0-11.0)
[2019-05-29 09:08] LABS: CALCIUM 7.8 mg/dL (8.5-10.1); CREATININE 0.7 mg/dL (0.6-1.0); GFR 90.5; POTASSIUM 4.3 mmol/L (3.5-5.1)
--- NOTE | 2019-05-29 09:54 | PDOC ---
Subjective: Subjective: Feels better. Hasn't been allowed to drink. Had a normal stool. Would be agreeable to EGD. Objective: Vital Signs: Vital Signs Date Time Temp Pulse Resp B/P (MAP) Pulse Ox O2 Delivery O2 Flow Rate FiO2 05/29/19 07:47 98.0 88 19 131/91 98.0 05/29/19 07:00 94 Room Air Labs: Laboratory Tests Test 05/28/19 10:21 05/28/19 15:45 05/28/19 16:00 05/28/19 19:40 Stool Occult Blood Negative Urine Opiates Screen Neg Urine Methadone Screen Neg Urine Barbiturates Neg Urine Phencyclidine Screen Neg Urine Amphetamine/Methamphetamine Neg Urine Benzodiazepines Screen Neg Urine Cocaine Screen Neg Urine Cannabinoids Screen Neg Urine Ethyl Alcohol Neg Hemoglobin 5.2 g/dL 5.6 g/dL Hematocrit 17.4 % 18.8 % Mean Corpuscular Hemoglobin Concent 30 g/dL 30 g/dL Test 05/29/19 08:20 White Blood Count 6.4 x10^3/uL Red Blood Count 3.47 x10^6/uL Hemoglobin 7.9 g/dL Hematocrit 25.6 % Mean Corpuscular Volume 74 fL Mean Corpuscular Hemoglobin 23 pg Mean Corpuscular Hemoglobin Concent 31 g/dL Red Cell Distribution Width 26.7 % Platelet Count 167 x10^3/uL Neutrophils (%) (Auto) 80 % Lymphocytes (%) (Auto) 11 % Monocytes (%) (Auto) 8 % Eosinophils (%) (Auto) 1 % Basophils (%) (Auto) 1 % Neutrophils # (Auto) 5.1 x10^3/uL Lymphocytes # (Auto) 0.7 x10^3/uL Monocytes # (Auto) 0.5 x10^3/uL Eosinophils # (Auto) 0.1 x10^3/uL Basophils # (Auto) 0.1 x10^3/uL Sodium Level 139 mmol/L Potassium Level 4.3 mmol/L Chloride Level 103 mmol/L Carbon Dioxide Level 26 mmol/L Anion Gap 10 Blood Urea Nitrogen 11 mg/dL Creatinine 0.7 mg/dL Estimated GFR (Cockcroft-Gault) 90.5 Glucose Level 88 mg/dL Calcium Level 7.8 mg/dL Imaging: Chest CT IMPRESSION: 1. Large hiatal hernia with intrathoracic positioning of a portion of the stomach and pancreas. This is similar compared to the CT dated 11/08/2017. 2. Left basilar compressive atelectasis. There is also bilateral basilar and posterior dependent atelectasis and right middle lobe and lingular atelectasis or scarring. The stable appearance. 3. Nonspecific mildly prominent mediastinal lymph nodes. These are not pathologically enlarged and may be physiologic or reactive in etiology. Pelv US IMPRESSION: Ill-defined uterine myometrial masses likely numerous leiomyomas. 3 cm dominant follicle right ovary. Endometrium is poorly visualized and likely compressed and effaced by leiomyomas. PE: GEN: NAD LUNGS: CTAB HEART: RRR ABD: S/ND/NT NEURO/PSYCH: A & O 3 A/P: ERICA, large hiatal hernia, GERD Suspected leiomyomas -- Reviewed w/ Dr. Briggs - will plan for EGD tonight and give iron infusion - d/w nurse. Can change to PO PPI after EGD, consider addition of Carafate. ADRI OLIVARES May 29, 2019 09:54
[2019-05-29] MEDS ORDERED: IRON SUCROSE COMPLEX 200 MG in IV NORMAL SALINE 100ML 100 ML IV ONE (10:30)
--- NOTE | 2019-05-29 10:33 | PDOC ---
[employer] PROGRESS NOTE Chief Complaint Chief Complaint Generalized Weakness Microcytic anemia GERD Admits to Recent Methamphetamine and marijuana use Elevated BNP History of Present Illness History of Present Illness 05/29/19 Pt seen and examined Pt was laying in bed, was pleasant and conversant during meeting. Pt was fatigued Pt denies any chest pain, n/v DW nurse Vitals/I&O Vitals/I&O: Vital Signs Date Time Temp Pulse Resp B/P (MAP) Pulse Ox O2 Delivery O2 Flow Rate FiO2 05/29/19 07:47 98.0 88 19 131/91 98.0 05/29/19 07:00 94 Room Air I & O 05/28/19 05/28/19 05/29/19 15:00 23:00 07:00 Intake Total 600 ml 180 ml 1220 ml Balance 600 ml 180 ml 1220 ml Physical Exam General: Alert, Oriented X3, Cooperative, No acute distress Heart: Regular rate, No murmurs Lungs: Clear Abdomen: Soft, No tenderness Extremities: No cyanosis Skin: No rashes, No significant lesion Labs Labs: Laboratory Tests Test 05/28/19 15:45 05/28/19 16:00 05/28/19 19:40 05/29/19 08:20 Urine Opiates Screen Neg (NEG) Urine Methadone Screen Neg (NEG) Urine Barbiturates Neg (NEG) Urine Phencyclidine Screen Neg (NEG) Urine Amphetamine/Methamphetamine Neg (NEG) Urine Benzodiazepines Screen Neg (NEG) Urine Cocaine Screen Neg (NEG) Urine Cannabinoids Screen Neg (NEG) Urine Ethyl Alcohol Neg (NEG) Hemoglobin 5.2 g/dL (12.0-15.5) 5.6 g/dL (12.0-15.5) 7.9 g/dL (12.0-15.5) Hematocrit 17.4 % (36.0-47.0) 18.8 % (36.0-47.0) 25.6 % (36.0-47.0) Mean Corpuscular Hemoglobin Concent 30 g/dL (31-37) 30 g/dL (31-37) 31 g/dL (31-37) White Blood Count 6.4 x10^3/uL (4.0-11.0) Red Blood Count 3.47 x10^6/uL (3.50-5.40) Mean Corpuscular Volume 74 fL (79-100) Mean Corpuscular Hemoglobin 23 pg (25-35) Red Cell Distribution Width 26.7 % (11.5-14.5) Platelet Count 167 x10^3/uL (140-400) Neutrophils (%) (Auto) 80 % (31-73) Lymphocytes (%) (Auto) 11 % (24-48) Monocytes (%) (Auto) 8 % (0-9) Eosinophils (%) (Auto) 1 % (0-3) Basophils (%) (Auto) 1 % (0-3) Neutrophils # (Auto) 5.1 x10^3/uL (1.8-7.7) Lymphocytes # (Auto) 0.7 x10^3/uL (1.0-4.8) Monocytes # (Auto) 0.5 x10^3/uL (0.0-1.1) Eosinophils # (Auto) 0.1 x10^3/uL (0.0-0.7) Basophils # (Auto) 0.1 x10^3/uL (0.0-0.2) Sodium Level 139 mmol/L (136-145) Potassium Level 4.3 mmol/L (3.5-5.1) Chloride Level 103 mmol/L (98-107) Carbon Dioxide Level 26 mmol/L (21-32) Anion Gap 10 (6-14) Blood Urea Nitrogen 11 mg/dL (7-20) Creatinine 0.7 mg/dL (0.6-1.0) Estimated GFR (Cockcroft-Gault) 90.5 Glucose Level 88 mg/dL (70-99) Calcium Level 7.8 mg/dL (8.5-10.1) Review of Systems Review of Systems: Gen: has fatigue HEENT: sore throat CV: Denies chest pain RESP: has SOB : Denies hematuria, dysuria ENDO: Denies weight changes NEURO: Denies confusion, dizziness, blurred vision MSK: has bodyaches SKIN: Denies jaundice, pruritus Assessment and Plan Assessmemt and Plan Assement Generalized Weakness Microcytic anemia GERD Admits to Recent Methamphetamine and marijuana use Elevated BNP Polysubstance abuse Plan Generalized weakness possibly secondary to anemia- pt given 4 units of prbc transfusions and iron supplementation Trend hgb Perform repeat iron study- trend iron/ tibc/ sat Consult GI regarding- Large hiatal hernia with intrathoracic positioning of a portion of the stomach and pancreas. This is similar compared to the CT dated 11/08/2017. And, possible GI bleed IV protonix Elevated BNP- could be secondary to hiatal hernia DVT ppx Pt admitts to marijuana and meth use- cessation counseling recommended. Full code Comment Review of Relevant I have reviewed the following items jesus (where applicable) has been applied. Medications: Current Medications Medications (Trade) Dose Ordered Sig/Royal Route PRN Reason Start Time Stop Time Status Last Admin Dose Admin Sodium Chloride 1,000 ml @ 100 mls/hr Q10H IV 05/28/19 11:00 05/29/19 10:59 05/29/19 08:03 Pantoprazole Sodium 80 mg/ Sodium Chloride 100 ml @ 10 mls/hr Q10H IV 05/28/19 12:00 05/29/19 09:53 DC 05/29/19 09:26 Iohexol (Omnipaque 300 Mg/ml) 75 ml 1X ONCE IV 05/28/19 14:00 05/28/19 14:01 DC 05/28/19 16:20 Influenza Virus Vaccine Quadrival (Afluria Quad 2018- (3yr Up) Syringe) 0.5 ml ONCE ONCE VAX IM 05/28/19 21:00 05/28/19 21:01 DC 05/29/19 09:28 ELISA BRUNO III DO May 29, 2019 10:33
[2019-05-29 12:06] LABS: BASO # 0.1 x10^3/uL (0.0-0.2); BASO % 1 % (0-3); EOS # 0.1 x10^3/uL (0.0-0.7); EOS % 1 % (0-3); HEMOGLOBIN 7.6 g/dL (12.0-15.5); LYMPH # 0.9 x10^3/uL (1.0-4.8); LYMPH % 16 % (24-48); MEAN CORPUSCULAR HEMOGLOBIN 23 pg (25-35); MEAN CORPUSCULAR HGB CONC 32 g/dL (31-37); MEAN CORPUSCULAR VOLUME 73 fL (79-100); MONO # 0.4 x10^3/uL (0.0-1.1); MONO % 8 % (0-9); NEUT # 4.1 x10^3/uL (1.8-7.7); NEUT % 74 % (31-73); PLATELET COUNT 176 x10^3/uL (140-400); RED BLOOD COUNT 3.27 x10^6/uL (3.50-5.40); RED CELL DISTRIBUTION WIDTH 27.1 % (11.5-14.5); WHITE BLOOD COUNT 5.6 x10^3/uL (4.0-11.0)
--- NOTE | 2019-05-29 12:51 | NUR ---
SS following for discharge planning. SS reviewed pt chart. Pt is self pay pt. HCFS following for self pay status. Pt is from home and is currently on room air. SS will continue to follow for discharge planning.
[2019-05-29] MEDS ORDERED: PROPOFOL 40 ML IV ONE (14:59)
[2019-05-29] MEDS ORDERED: PROPOFOL 20 ML IV ONE (15:00)
[2019-05-29] MEDS: IV RINGERS,LACTATED 1000ML 1,000 ML IV SCH (15:00)
[2019-05-29] MEDS ORDERED: LIDOCAINE 2% PF 5 ML VIAL. ONE (15:00)
--- NOTE | 2019-05-29 15:44 | PDOC2 ---
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 The pt reported at that time she had recently had a transfusion only a wk ago. The pts previous anemia was thought to be 2/2 a GI bleed. The pt denied hematemesis and melena, hematuria, ecchymosis, chest pain, fever and chills, focal neuro deficit. In the ER her Hgb was found to be 4.1. After the transfusion of 4U pRBC, she is now 7.6. GI was consulted due to her large hiatal hernia and GERD. A hx of menorrhagia was elicited by the pt so pelvic u/s was ordered. The u/s revealed an uterus measuring 12.5 x 7.4 x 8.9 cm. They also found ill-defined masses of the uterine myometrium typical of leiomyomas. The pt feels her periods have always been heavy. They are monthly and the flow is typically 5-7 days. The pt has never tried any tx for her menorrhagia. Discussed tx options for menorrhagia with the pt including expec tant, medical, or surgical management. The pt is leaning toward medical management. She is not currently on her cycle. 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/19 No h/o hormonal contraception 9yo / regular SH: 1PPD, no EtOH Family History Family History: High Cholestrol, Hypertension Social History 1 pack per day ALCOHOL: none Drugs: Marijuana, Crystal meth Current Problem List Problem List Problems Medical Problems: (1) Elevated brain natriuretic peptide (BNP) level Status: Acute (2) Hypoalbuminemia Status: Acute (3) Severe anemia Status: Acute Current Medications Current Medications Current Medications Pantoprazole Sodium (PROTONIX VIAL for IV PUSH) 40 mg 1X ONCE IVP Last administered on 05/28/19at 10:08; Start 05/28/19 at 09:45; Stop 05/28/19 at 09:46; Status DC Ondansetron HCl (Zofran) 4 mg 1X ONCE IV Last administered on 05/28/19at 10:07; Start 05/28/19 at 09:45; Stop 05/28/19 at 09:46; Status DC Sodium Chloride 1,000 ml @ 100 mls/hr Q10H IV Last administered on 05/29/19at 08:03; Start 05/28/19 at 11:00; Stop 05/29/19 at 10:59; Status DC Pantoprazole Sodium 80 mg/ Sodium Chloride 100 ml @ 10 mls/hr Q10H IV Last administered on 05/29/19at 09:26; Start 05/28/19 at 12:00; Stop 05/29/19 at 09:53; Status DC Iohexol (Omnipaque 300 Mg/ml) 75 ml 1X ONCE IV Last administered on 05/28/19at 16:20; Start 05/28/19 at 14:00; Stop 05/28/19 at 14:01; Status DC Info (CONTRAST GIVEN -- Rx MONITORING) 1 each PRN DAILY PRN MC SEE COMMENTS; Start 05/28/19 at 14:00; Stop 05/30/19 at 13:59 Influenza Virus Vaccine Quadrival (Afluria Quad 2019-20 (3yr Up) Syringe) 0.5 ml ONCE ONCE VAX IM Last administered on 05/29/19at 09:28; Start 05/28/19 at 21:00; Stop 05/28/19 at 21:01; Status DC Pantoprazole Sodium (Protonix) 40 mg BIDAC PO ; Start 05/29/19 at 16:30 Iron Sucrose 200 mg/Sodium Chloride 110 ml @ 55 mls/hr 1X ONCE IV Last administered on 05/29/19at 11:33; Start 05/29/19 at 10:30; Stop 05/29/19 at 12:29; Status DC Ringer's Solution 1,000 ml @ 75 mls/hr [id number] IV Last administered on 05/29/19at 15:00; Start 05/29/19 at 15:00 Propofol 40 ml @ As Directed STK-MED ONCE IV ; Start 05/29/19 at 14:59; Stop 05/29/19 at 15:00; Status DC Lidocaine HCl (Lidocaine Pf 2% Vial) 5 ml STK-MED ONCE .ROUTE ; Start 05/29/19 at 15:00; Stop 05/29/19 at 15:00; Status DC Propofol 20 ml @ As Directed STK-MED ONCE IV ; Start 05/29/19 at 15:00; Stop 05/29/19 at 15:00; Status DC Active Scripts Active Reported Protonix (Pantoprazole Sodium) 20 Mg Tablet. 1 Tab PO DAILY Allergies Allergies: Coded Allergies: No Known Drug Allergies (Unverified , 05/28/19) Physical Exam General: Alert, Oriented X3, Cooperative, No acute distress HEENT: PERRLA, Mucous membr. moist/pink Lungs: Clear to auscultation, Normal air movement Heart: Regular rate, Normal S1, Normal S2, No murmurs Abdomen: Normal bowel sounds, Soft, No tenderness, No hepatosplenomegaly, No masses Extremities: No clubbing, No cyanosis, No edema, Normal pulses, No tenderness/swelling Skin: No rashes, No breakdown Neuro: Normal gait, Normal speech, Normal tone, Sensation intact, Reflexes 2+ Vitals VITALS Vital Signs Date Time Temp Pulse Resp B/P (MAP) Pulse Ox O2 Delivery O2 Flow Rate FiO2 05/29/19 14:46 97.2 80 18 95 97.2 05/29/19 14:46 Room Air 05/29/19 11:00 128/91 (103) Labs Labs Laboratory Tests Test 05/28/19 09:25 05/28/19 09:26 05/28/19 09:45 05/28/19 10:21 Urine Collection Type Unknown Urine Color Yellow Urine Clarity Clear Urine pH 6.0 Urine Specific [place] 1.015 Urine Protein Negative mg/dL (NEG-TRACE) Urine Glucose (UA) Negative mg/dL (NEG) Urine Ketones (Stick) Negative mg/dL (NEG) Urine Blood Negative (NEG) Urine Nitrite Negative (NEG) Urine Bilirubin Negative (NEG) Urine Urobilinogen Dipstick 1.0 mg/dL (0.2 mg/dL) Urine Leukocyte Esterase Trace (NEG) Urine RBC 0 /HPF (0-2) Urine WBC 1-4 /HPF (0-4) Urine Squamous Epithelial Cells Few /LPF Urine Bacteria Few /HPF (0-FEW) Urine Mucus Marked /LPF Bedside Urine HCG, Qualitative Hcg negative (Negative) White Blood Count 4.2 x10^3/uL (4.0-11.0) Red Blood Count 2.28 x10^6/uL (3.50-5.70) Hemoglobin 4.1 g/dL (12.0-15.5) Hematocrit 14.7 % (36.0-47.0) Mean Corpuscular Volume 64 fL (79-100) Mean Corpuscular Hemoglobin 18 pg (25-35) Mean Corpuscular Hemoglobin Concent 28 g/dL (31-37) Red Cell Distribution Width 22.7 % (11.5-14.5) Platelet Count 206 x10^3/uL (140-400) Neutrophils (%) (Auto) 64 % (31-73) Lymphocytes (%) (Auto) 23 % (24-48) Monocytes (%) (Auto) 10 % (0-9) Eosinophils (%) (Auto) 1 % (0-3) Basophils (%) (Auto) 1 % (0-3) Neutrophils # (Auto) 2.7 x10^3/uL (1.8-7.7) Lymphocytes # (Auto) 1.0 x10^3/uL (1.0-4.8) Monocytes # (Auto) 0.4 x10^3/uL (0.0-1.1) Eosinophils # (Auto) 0.0 x10^3/uL (0.0-0.7) Basophils # (Auto) 0.1 x10^3/uL (0.0-0.2) Platelet Estimate Adequate (ADEQUATE) Polychromasia Present Hypochromasia Present Poikilocytosis Present Anisocytosis Present Microcytosis Present Macrocytosis Present Ovalocytes Present Absolute Reticulocyte Count 0.123 x10^6/uL (0.020-0.120) Percent Reticulocyte Count 5.4 % (0.5-2.3) Immature Reticulocyte Fraction 0.59 (0.20-0.60) Prothrombin Time 13.4 SEC (11.7-14.0) Prothromb Time International Ratio 1.1 (0.8-1.1) Activated Partial Thromboplast Time 29 SEC (24-38) Sodium Level 139 mmol/L (136-145) Potassium Level 3.8 mmol/L (3.5-5.1) Chloride Level 103 mmol/L (98-107) Carbon Dioxide Level 25 mmol/L (21-32) Anion Gap 11 (6-14) Blood Urea Nitrogen 17 mg/dL (7-20) Creatinine 0.7 mg/dL (0.6-1.0) Estimated GFR (Cockcroft-Gault) 90.5 BUN/Creatinine Ratio 24 (6-20) Glucose Level 115 mg/dL (70-99) Calcium Level 8.4 mg/dL (8.5-10.1) Iron Level 12 ug/dL (50-170) Total Iron Binding Capacity 650 ug/dL (250-450) Iron Saturation 2 % (15-34) Total Bilirubin 0.8 mg/dL (0.2-1.0) Aspartate Amino Transf (AST/SGOT) 14 U/L (15-37) Alanine Aminotransferase (ALT/SGPT) 11 U/L (14-59) Alkaline Phosphatase 98 U/L (46-116) Troponin I Quantitative < 0.017 ng/mL (0.000-0.055) GW-Oep-A-Type Natriuretic Peptide 1444 pg/mL (0-124) Total Protein 7.0 g/dL (6.4-8.2) Albumin 3.2 g/dL (3.4-5.0) Albumin/Globulin Ratio 0.8 (1.0-1.7) Lipase 86 U/L (73-393) Vitamin B12 Level 312 pg/mL (247-911) Stool Occult Blood Negative (NEG) Test 05/28/19 15:45 05/28/19 16:00 05/28/19 19:40 05/29/19 08:20 Urine Opiates Screen Neg (NEG) Urine Methadone Screen Neg (NEG) Urine Barbiturates Neg (NEG) Urine Phencyclidine Screen Neg (NEG) Urine Amphetamine/Methamphetamine Neg (NEG) Urine Benzodiazepines Screen Neg (NEG) Urine Cocaine Screen Neg (NEG) Urine Cannabinoids Screen Neg (NEG) Urine Ethyl Alcohol Neg (NEG) Hemoglobin 5.2 g/dL (12.0-15.5) 5.6 g/dL (12.0-15.5) 7.9 g/dL (12.0-15.5) Hematocrit 17.4 % (36.0-47.0) 18.8 % (36.0-47.0) 25.6 % (36.0-47.0) Mean Corpuscular Hemoglobin Concent 30 g/dL (31-37) 30 g/dL (31-37) 31 g/dL (31-37) White Blood Count 6.4 x10^3/uL (4.0-11.0) Red Blood Count 3.47 x10^6/uL (3.50-5.40) Mean Corpuscular Volume 74 fL (79-100) Mean Corpuscular Hemoglobin 23 pg (25-35) Red Cell Distribution Width 26.7 % (11.5-14.5) Platelet Count 167 x10^3/uL (140-400) Neutrophils (%) (Auto) 80 % (31-73) Lymphocytes (%) (Auto) 11 % (24-48) Monocytes (%) (Auto) 8 % (0-9) Eosinophils (%) (Auto) 1 % (0-3) Basophils (%) (Auto) 1 % (0-3) Neutrophils # (Auto) 5.1 x10^3/uL (1.8-7.7) Lymphocytes # (Auto) 0.7 x10^3/uL (1.0-4.8) Monocytes # (Auto) 0.5 x10^3/uL (0.0-1.1) Eosinophils # (Auto) 0.1 x10^3/uL (0.0-0.7) Basophils # (Auto) 0.1 x10^3/uL (0.0-0.2) Sodium Level 139 mmol/L (136-145) Potassium Level 4.3 mmol/L (3.5-5.1) Chloride Level 103 mmol/L (98-107) Carbon Dioxide Level 26 mmol/L (21-32) Anion Gap 10 (6-14) Blood Urea Nitrogen 11 mg/dL (7-20) Creatinine 0.7 mg/dL (0.6-1.0) Estimated GFR (Cockcroft-Gault) 90.5 Glucose Level 88 mg/dL (70-99) Calcium Level 7.8 mg/dL (8.5-10.1) Test 05/29/19 11:50 White Blood Count 5.6 x10^3/uL (4.0-11.0) Red Blood Count 3.27 x10^6/uL (3.50-5.40) Hemoglobin 7.6 g/dL (12.0-15.5) Hematocrit 24.0 % (36.0-47.0) Mean Corpuscular Volume 73 fL (79-100) Mean Corpuscular Hemoglobin 23 pg (25-35) Mean Corpuscular Hemoglobin Concent 32 g/dL (31-37) Red Cell Distribution Width 27.1 % (11.5-14.5) Platelet Count 176 x10^3/uL (140-400) Neutrophils (%) (Auto) 74 % (31-73) Lymphocytes (%) (Auto) 16 % (24-48) Monocytes (%) (Auto) 8 % (0-9) Eosinophils (%) (Auto) 1 % (0-3) Basophils (%) (Auto) 1 % (0-3) Neutrophils # (Auto) 4.1 x10^3/uL (1.8-7.7) Lymphocytes # (Auto) 0.9 x10^3/uL (1.0-4.8) Monocytes # (Auto) 0.4 x10^3/uL (0.0-1.1) Eosinophils # (Auto) 0.1 x10^3/uL (0.0-0.7) Basophils # (Auto) 0.1 x10^3/uL (0.0-0.2) Laboratory Tests Test 05/28/19 15:45 05/28/19 16:00 05/28/19 19:40 05/29/19 08:20 Urine Opiates Screen Neg (NEG) Urine Methadone Screen Neg (NEG) Urine Barbiturates Neg (NEG) Urine Phencyclidine Screen Neg (NEG) Urine Amphetamine/Methamphetamine Neg (NEG) Urine Benzodiazepines Screen Neg (NEG) Urine Cocaine Screen Neg (NEG) Urine Cannabinoids Screen Neg (NEG) Urine Ethyl Alcohol Neg (NEG) Hemoglobin 5.2 g/dL (12.0-15.5) 5.6 g/dL (12.0-15.5) 7.9 g/dL (12.0-15.5) Hematocrit 17.4 % (36.0-47.0) 18.8 % (36.0-47.0) 25.6 % (36.0-47.0) Mean Corpuscular Hemoglobin Concent 30 g/dL (31-37) 30 g/dL (31-37) 31 g/dL (31-37) White Blood Count 6.4 x10^3/uL (4.0-11.0) Red Blood Count 3.47 x10^6/uL (3.50-5.40) Mean Corpuscular Volume 74 fL (79-100) Mean Corpuscular Hemoglobin 23 pg (25-35) Red Cell Distribution Width 26.7 % (11.5-14.5) Platelet Count 167 x10^3/uL (140-400) Neutrophils (%) (Auto) 80 % (31-73) Lymphocytes (%) (Auto) 11 % (24-48) Monocytes (%) (Auto) 8 % (0-9) Eosinophils (%) (Auto) 1 % (0-3) Basophils (%) (Auto) 1 % (0-3) Neutrophils # (Auto) 5.1 x10^3/uL (1.8-7.7) Lymphocytes # (Auto) 0.7 x10^3/uL (1.0-4.8) Monocytes # (Auto) 0.5 x10^3/uL (0.0-1.1) Eosinophils # (Auto) 0.1 x10^3/uL (0.0-0.7) Basophils # (Auto) 0.1 x10^3/uL (0.0-0.2) Sodium Level 139 mmol/L (136-145) Potassium Level 4.3 mmol/L (3.5-5.1) Chloride Level 103 mmol/L (98-107) Carbon Dioxide Level 26 mmol/L (21-32) Anion Gap 10 (6-14) Blood Urea Nitrogen 11 mg/dL (7-20) Creatinine 0.7 mg/dL (0.6-1.0) Estimated GFR (Cockcroft-Gault) 90.5 Glucose Level 88 mg/dL (70-99) Calcium Level 7.8 mg/dL (8.5-10.1) Test 05/29/19 11:50 White Blood Count 5.6 x10^3/uL (4.0-11.0) Red Blood Count 3.27 x10^6/uL (3.50-5.40) Hemoglobin 7.6 g/dL (12.0-15.5) Hematocrit 24.0 % (36.0-47.0) Mean Corpuscular Volume 73 fL (79-100) Mean Corpuscular Hemoglobin 23 pg (25-35) Mean Corpuscular Hemoglobin Concent 32 g/dL (31-37) Red Cell Distribution Width 27.1 % (11.5-14.5) Platelet Count 176 x10^3/uL (140-400) Neutrophils (%) (Auto) 74 % (31-73) Lymphocytes (%) (Auto) 16 % (24-48) Monocytes (%) (Auto) 8 % (0-9) Eosinophils (%) (Auto) 1 % (0-3) Basophils (%) (Auto) 1 % (0-3) Neutrophils # (Auto) 4.1 x10^3/uL (1.8-7.7) Lymphocytes # (Auto) 0.9 x10^3/uL (1.0-4.8) Monocytes # (Auto) 0.4 x10^3/uL (0.0-1.1) Eosinophils # (Auto) 0.1 x10^3/uL (0.0-0.7) Basophils # (Auto) 0.1 x10^3/uL (0.0-0.2) Assessment/Plan Assessment/Plan Assessment: 43y admitted for severe anemia Recommendation: 1.) Menorrhagia The pt reports that her cycles have been heav all her life. There is a good chance that this has contributed to her anemia. There is also a chance that her fibroids may be the cause of her heavy bleeding even though they are small. The pt states that she has never attempted any tx for her heavy bleeding. Since she has monthly cycles sampling is not necessary at this time. Discussed the tx options for heavy bleeding with the pt. Since she is not actively bleeding starting a hormonal contraception at this time may not be necessary. The pt may be an excellent candidate for a progesterone-only contraception that can be placed on an outpt basis. If the pt were to begin bleeding during this hospitalization Provera would be a good option to start. 2.) Fibroids They did not comment on the exact size of the fibroids, but based on the overall size of her uterus they may not be that big. This makes her a good candidate to attempt medical therapy for her heavy bleeding. 3.) Severe anemia Unclear etiology, may be GI or Crozer Operator, currently being w/u by GI, s/p 4U pRBC 4.) Large hiatal hernia per GI 5.) Tob use 6.) Contraception BTL 7.) C/S x 1 8.) Drug use h/o meth use 9.) Left basilar compressive atelectasis per primary team JULISSA SLATER MD May 29, 2019 15:44
--- NOTE | 2019-05-29 16:10 | PDOC4 ---
Operative Note Operative Note EGD with biopsies Meds propofol per anesthesia Pre-op dx chroinc blood loss anemia/hiatal hernia on Ct scan post-op dx erosive esophagitis with large hiatal hernia s/p bx Plan resume diet surgery consult for possible repair with note of pancreatic hernia as well. CHRISTINE ORTEGA MD May 29, 2019 16:10
[2019-05-29] MEDS: PANTOPRAZOLE 40 MG TABLET.DR. PO SCH (17:47)
[2019-05-30 03:37] VITALS: BP 129/90
[2019-05-30] MEDS: IV RINGERS,LACTATED 1000ML 1,000 ML IV SCH ×2 (04:20→18:59)
[2019-05-30 07:47] VITALS: BP 139/96
[2019-05-30] MEDS: PANTOPRAZOLE 40 MG TABLET.DR. PO SCH ×2 (10:36→17:19)
--- NOTE | 2019-05-30 11:18 | PDOC ---
Subjective: Subjective: Feels fine today, eating okay, no bleeding. Objective: Objective: D/w nurse - eating well. Vital Signs: Vital Signs Date Time Temp Pulse Resp B/P (MAP) Pulse Ox O2 Delivery O2 Flow Rate FiO2 05/30/19 07:47 97.1 87 20 139/96 (110) 94 Room Air 97.1 Labs: Laboratory Tests Test 05/29/19 11:50 White Blood Count 5.6 x10^3/uL Red Blood Count 3.27 x10^6/uL Hemoglobin 7.6 g/dL Hematocrit 24.0 % Mean Corpuscular Volume 73 fL Mean Corpuscular Hemoglobin 23 pg Mean Corpuscular Hemoglobin Concent 32 g/dL Red Cell Distribution Width 27.1 % Platelet Count 176 x10^3/uL Neutrophils (%) (Auto) 74 % Lymphocytes (%) (Auto) 16 % Monocytes (%) (Auto) 8 % Eosinophils (%) (Auto) 1 % Basophils (%) (Auto) 1 % Neutrophils # (Auto) 4.1 x10^3/uL Lymphocytes # (Auto) 0.9 x10^3/uL Monocytes # (Auto) 0.4 x10^3/uL Eosinophils # (Auto) 0.1 x10^3/uL Basophils # (Auto) 0.1 x10^3/uL Imaging: EGD 05/29 erosive esophagitis with large hiatal hernia s/p bx Plan resume diet, surgery consult for possible repair with note of pancreatic hernia as well. PE: GEN: NAD - was sleeping LUNGS: CTAB HEART: RRR ABD: S/ND/NT NEURO/PSYCH: A & O 3, drowsy, doesn't say much A/P: ERICA, large hiatal hernia, GERD Menorrhagia, uterine fibroids -- Continue PPI, await surgical thoughts. Should continue iron supplements in some form - received infusion here. Will recheck Hgb. -- Dr. Carter called wondering about possible discharge after surgery sees. Okay will GI - would send on PPI and iron. Should eventually have outpt colonoscopy - our office can contact. Would follow-up w/ [employer]AT[employer] WORK[employer] as well. ADRI OLIVARES May 30, 2019 11:18
[2019-05-30 11:58] VITALS: BP 136/107
[2019-05-30 13:14] LABS: HEMATOCRIT 27.9 % (36.0-47.0); HEMOGLOBIN 8.6 g/dL (12.0-15.5)
--- NOTE | 2019-05-30 13:16 | PDOC ---
[employer] PROGRESS NOTE Chief Complaint Chief Complaint Generalized Weakness Microcytic anemia Hital hernia GERD Admits to Recent Methamphetamine and marijuana use Elevated BNP History of Present Illness History of Present Illness 05/30/19 Pt seen and examined Pt was laying in bed and was pleasant and conversant during meeting Pt complained of SOB. Pt denied any abdominal pain. Pt's chart was reviewed. [facility] nurse. 05/29/19 Pt seen and examined Pt was laying in bed, was pleasant and conversant during meeting. Pt was fatigued Pt denies any chest pain, n/v DW nurse Vitals/I&O Vitals/I&O: Vital Signs Date Time Temp Pulse Resp B/P (MAP) Pulse Ox O2 Delivery O2 Flow Rate FiO2 05/30/19 11:58 98.2 91 18 136/107 (117) 98 Room Air 98.2 I & O 05/29/19 05/29/19 05/30/19 15:00 23:00 07:00 Intake Total 450 ml Balance 450 ml Physical Exam General: Alert, Oriented X3, Cooperative, No acute distress Heart: Regular rate, Normal S1, Normal S2, No murmurs Lungs: Clear Abdomen: Normal bowel sounds, Soft, No tenderness, No hepatosplenomegaly, No masses Extremities: No clubbing, No cyanosis, No edema, Normal pulses, No tenderness/swelling Skin: No rashes, No breakdown Review of Systems Review of Systems: Gen: denies f/c GI: complains of nausea, denies ab pain Extremities: denies LE/ UE weakness or pain : Denies and changes in urinary frequency/ urgency/ or dysuria Assessment and Plan Assessmemt and Plan Assement Generalized Weakness Microcytic anemia GERD Hiatal Hernia Admits to Recent Methamphetamine and marijuana use Elevated BNP Polysubstance abuse Plan Generalized weakness possibly secondary to anemia- pt given 4 units of prbc transfusions and iron supplementation Trend hgb Perform repeat iron study- trend iron/ tibc/ sat Consult GI regarding- Large hiatal hernia with intrathoracic positioning of a portion of the stomach and pancreas. This is similar compared to the CT dated 11/08/2017. And, possible GI bleed IV protonix Surgery consulted regarding hernia Elevated BNP- could be secondary to hiatal hernia DVT ppx Pt admitts to marijuana and meth use- cessation counseling recommended. Full code OB consulted regardign menorrhagia and fibroids as possible cause for exacerbation of mentrual bleeding- pt is open to change to progesterone based ocp f/u with ob as outpt Plan to DC at surgery's approval with regard to hiatal hernia Comment Review of Relevant I have reviewed the following items jesus (where applicable) has been applied. Medications: Current Medications Medications (Trade) Dose Ordered Sig/[place] PRN Reason Start Time Stop Time Status Last Admin Dose Admin Pantoprazole Sodium (Protonix) 40 mg BIDAC PO 05/29/19 16:30 05/30/19 10:36 Ringer's Solution 1,000 ml @ 75 mls/hr [id number] IV 05/29/19 15:00 05/29/19 15:00 ELISA BRUNO III DO May 30, 2019 13:16
--- NOTE | 2019-05-30 13:18 | PDOC ---
PROGRESS NOTES Subjective Subjective Pt with no issues or concerns Objective Objective Vital Signs Date Time Temp Pulse Resp B/P (MAP) Pulse Ox O2 Delivery O2 Flow Rate FiO2 05/30/19 11:58 98.2 91 18 136/107 (117) 98 Room Air 98.2 Intake and Output 05/30/19 07:00 Intake Total 450 ml Balance 450 ml Intake Oral 300 ml IV Total 150 ml Assessment Assessment Problems Medical Problems: (1) Elevated brain natriuretic peptide (BNP) level Status: Acute (2) Hypoalbuminemia Status: Acute (3) Severe anemia Status: Acute Assessment: 43y admitted for severe anemia Recommendation: 1.) Menorrhagia not active bleeding, expectant management at this time. Wood be a good candidate for a progesterone-only contraception that can be placed on an outpt basis. Will provide pt with locations that can provide this resource. 2.) Fibroids may be cause of heavy bleeding, would beginm with medical management 3.) Severe anemia Unclear etiology, may be GI or Fleet Technician, currently being w/u by GI, s/p 4U pRBC 4.) Large hiatal hernia per GI, found to have erosive esophagitis with large hiatal hernia on EGD, bx pending 5.) Tob use 6.) Contraception BTL 7.) C/S x 1 8.) Drug use h/o meth use 9.) Left basilar compressive atelectasis per primary team Comment Review of Relevant I have reviewed the following items jesus (where applicable) has been applied. Labs Laboratory Tests Test 05/28/19 15:45 05/28/19 16:00 05/28/19 19:40 05/29/19 08:20 Urine Opiates Screen Neg (NEG) Urine Methadone Screen Neg (NEG) Urine Barbiturates Neg (NEG) Urine Phencyclidine Screen Neg (NEG) Urine Amphetamine/Methamphetamine Neg (NEG) Urine Benzodiazepines Screen Neg (NEG) Urine Cocaine Screen Neg (NEG) Urine Cannabinoids Screen Neg (NEG) Urine Ethyl Alcohol Neg (NEG) Hemoglobin 5.2 g/dL (12.0-15.5) 5.6 g/dL (12.0-15.5) 7.9 g/dL (12.0-15.5) Hematocrit 17.4 % (36.0-47.0) 18.8 % (36.0-47.0) 25.6 % (36.0-47.0) Mean Corpuscular Hemoglobin Concent 30 g/dL (31-37) 30 g/dL (31-37) 31 g/dL (31-37) White Blood Count 6.4 x10^3/uL (4.0-11.0) Red Blood Count 3.47 x10^6/uL (3.50-5.40) Mean Corpuscular Volume 74 fL (79-100) Mean Corpuscular Hemoglobin 23 pg (25-35) Red Cell Distribution Width 26.7 % (11.5-14.5) Platelet Count 167 x10^3/uL (140-400) Neutrophils (%) (Auto) 80 % (31-73) Lymphocytes (%) (Auto) 11 % (24-48) Monocytes (%) (Auto) 8 % (0-9) Eosinophils (%) (Auto) 1 % (0-3) Basophils (%) (Auto) 1 % (0-3) Neutrophils # (Auto) 5.1 x10^3/uL (1.8-7.7) Lymphocytes # (Auto) 0.7 x10^3/uL (1.0-4.8) Monocytes # (Auto) 0.5 x10^3/uL (0.0-1.1) Eosinophils # (Auto) 0.1 x10^3/uL (0.0-0.7) Basophils # (Auto) 0.1 x10^3/uL (0.0-0.2) Sodium Level 139 mmol/L (136-145) Potassium Level 4.3 mmol/L (3.5-5.1) Chloride Level 103 mmol/L (98-107) Carbon Dioxide Level 26 mmol/L (21-32) Anion Gap 10 (6-14) Blood Urea Nitrogen 11 mg/dL (7-20) Creatinine 0.7 mg/dL (0.6-1.0) Estimated GFR (Cockcroft-Gault) 90.5 Glucose Level 88 mg/dL (70-99) Calcium Level 7.8 mg/dL (8.5-10.1) Test 05/29/19 11:50 White Blood Count 5.6 x10^3/uL (4.0-11.0) Red Blood Count 3.27 x10^6/uL (3.50-5.40) Hemoglobin 7.6 g/dL (12.0-15.5) Hematocrit 24.0 % (36.0-47.0) Mean Corpuscular Volume 73 fL (79-100) Mean Corpuscular Hemoglobin 23 pg (25-35) Mean Corpuscular Hemoglobin Concent 32 g/dL (31-37) Red Cell Distribution Width 27.1 % (11.5-14.5) Platelet Count 176 x10^3/uL (140-400) Neutrophils (%) (Auto) 74 % (31-73) Lymphocytes (%) (Auto) 16 % (24-48) Monocytes (%) (Auto) 8 % (0-9) Eosinophils (%) (Auto) 1 % (0-3) Basophils (%) (Auto) 1 % (0-3) Neutrophils # (Auto) 4.1 x10^3/uL (1.8-7.7) Lymphocytes # (Auto) 0.9 x10^3/uL (1.0-4.8) Monocytes # (Auto) 0.4 x10^3/uL (0.0-1.1) Eosinophils # (Auto) 0.1 x10^3/uL (0.0-0.7) Basophils # (Auto) 0.1 x10^3/uL (0.0-0.2) Microbiology 05/28/19 Urine Culture - Final, Complete 05/28/19 Urine Culture Result 1 (KOLBY) - Final, Complete Medications Current Medications Pantoprazole Sodium (PROTONIX VIAL for IV PUSH) 40 mg 1X ONCE IVP Last administered on 05/28/19at 10:08; Start 05/28/19 at 09:45; Stop 05/28/19 at 09:46; Status DC Ondansetron HCl (Zofran) 4 mg 1X ONCE IV Last administered on 05/28/19at 10:07; Start 05/28/19 at 09:45; Stop 05/28/19 at 09:46; Status DC Sodium Chloride 1,000 ml @ 100 mls/hr Q10H IV Last administered on 05/29/19at 08:03; Start 05/28/19 at 11:00; Stop 05/29/19 at 10:59; Status DC Pantoprazole Sodium 80 mg/ Sodium Chloride 100 ml @ 10 mls/hr Q10H IV Last administered on 05/29/19at 09:26; Start 05/28/19 at 12:00; Stop 05/29/19 at 09:53; Status DC Iohexol (Omnipaque 300 Mg/ml) 75 ml 1X ONCE IV Last administered on 05/28/19at 16:20; Start 05/28/19 at 14:00; Stop 05/28/19 at 14:01; Status DC Info (CONTRAST GIVEN -- Rx MONITORING) 1 each PRN DAILY PRN MC SEE COMMENTS; Start 05/28/19 at 14:00; Stop 05/30/19 at 13:59 Influenza Virus Vaccine Quadrival (Afluria Quad 2019-20 (3yr Up) Syringe) 0.5 ml ONCE ONCE VAX IM Last administered on 05/29/19at 09:28; Start 05/28/19 at 21:00; Stop 05/28/19 at 21:01; Status DC Pantoprazole Sodium (Protonix) 40 mg BIDAC PO Last administered on 05/30/19at 10:36; Start 05/29/19 at 16:30 Iron Sucrose 200 mg/Sodium Chloride 110 ml @ 55 mls/hr 1X ONCE IV Last administered on 05/29/19at 11:33; Start 05/29/19 at 10:30; Stop 05/29/19 at 12:29; Status DC Ringer's Solution 1,000 ml @ 75 mls/hr [id number] IV Last administered on 05/29/19at 15:00; Start 05/29/19 at 15:00 Propofol 40 ml @ As Directed STK-MED ONCE IV ; Start 05/29/19 at 14:59; Stop 05/29/19 at 15:00; Status DC Lidocaine HCl (Lidocaine Pf 2% Vial) 5 ml STK-MED ONCE .ROUTE ; Start 05/29/19 at 15:00; Stop 05/29/19 at 15:00; Status DC Propofol 20 ml @ As Directed STK-MED ONCE IV ; Start 05/29/19 at 15:00; Stop 05/29/19 at 15:00; Status DC Active Scripts Active Reported Protonix (Pantoprazole Sodium) 20 Mg Tablet.dr 1 Tab PO DAILY Vitals/I & O Vital Sign - Last 24 Hours 05/29/19 05/29/19 05/29/19/7/20 14:46 14:46 16:10 16:25 Temp 97.2 97.5 97.7 97.2 97.5 97.7 Pulse 80 99 87 Resp 18 18 B/P (MAP) 186/95 146/83 Pulse Ox 95 95 95 O2 Delivery Room Air Room Air Room Air 05/29/19 05/29/19 05/29/19 05/29/19 16:30 16:37 19:32 20:20 Temp 98.1 97.6 98.1 97.6 Pulse 86 86 89 Resp 18 B/P (MAP) 138/95 (109) 143/78 121/47 (71) Pulse Ox 96 95 93 O2 Delivery Room Air Room Air Room Air Room Air 05/29/19 05/30/19 05/30/19 05/30/19 23:44 03:37 07:47 11:58 Temp 97.5 98.5 97.1 98.2 97.5 98.5 97.1 98.2 Pulse 83 83 87 91 Resp 18 B/P (MAP) 139/86 (103) 129/90 (103) 139/96 (110) 136/107 (117) Pulse Ox 98 95 94 98 O2 Delivery Room Air Room Air Room Air Room Air Intake and Output0 05/29/19 05/29/19 05/30/19 15:00 23:00 07:00 Intake Total 450 ml Balance 450 ml JULISSA SLATER MD May 30, 2019 13:17
[2019-05-30 15:00] VITALS: BP 146/95
--- NOTE | 2019-05-30 16:37 | PDOC2 ---
CONSULT Date of Consult Date of Consult DATE: 05/30/19 TIME: 16:32 History of Present Illness Reason for Visit: The patient is a 43 year old female who was admitted due to significant anemia. She state she was feeling very tired, and she had a similar bout of this years ago. She had been treated previously at and was told she had a large hiatal hernia and needed surgery. However she doesn't have insurance and she was discharged. Since transfusions she is feeling well. She denies nausea or vomiting, and reports chronic reflux symptoms which are controlled with medicines. Past Medical History Past Medical History hiatal hernia, GERD, tobacco use Past Surgical History Past Surgical History Csection, tubal Family History Family History: High Cholestrol, Hypertension Social History 1 pack per day ALCOHOL: none Drugs: Marijuana, Crystal meth Current Problem List Problem List Problems Medical Problems: (1) Elevated brain natriuretic peptide (BNP) level Status: Acute (2) Hypoalbuminemia Status: Acute (3) Severe anemia Status: Acute Current Medications Current Medications Current Medications Pantoprazole Sodium (PROTONIX VIAL for IV PUSH) 40 mg 1X ONCE IVP Last administered on 05/28/19at 10:08; Start 05/28/19 at 09:45; Stop 05/28/19 at 09:46; Status DC Ondansetron HCl (Zofran) 4 mg 1X ONCE IV Last administered on 05/28/19at 10:07; Start 05/28/19 at 09:45; Stop 05/28/19 at 09:46; Status DC Sodium Chloride 1,000 ml @ 100 mls/hr Q10H IV Last administered on 05/29/19at 08:03; Start 05/28/19 at 11:00; Stop 05/29/19 at 10:59; Status DC Pantoprazole Sodium 80 mg/ Sodium Chloride 100 ml @ 10 mls/hr Q10H IV Last administered on 05/29/19at 09:26; Start 05/28/19 at 12:00; Stop 05/29/19 at 09:53; Status DC Iohexol (Omnipaque 300 Mg/ml) 75 ml 1X ONCE IV Last administered on 05/28/19at 16:20; Start 05/28/19 at 14:00; Stop 05/28/19 at 14:01; Status DC Info (CONTRAST GIVEN -- Rx MONITORING) 1 each PRN DAILY PRN MC SEE COMMENTS; Start 05/28/19 at 14:00; Stop 05/30/19 at 13:59; Status DC Influenza Virus Vaccine Quadrival (Afluria Quad 2019-20 (3yr Up) Syringe) 0.5 ml ONCE ONCE VAX IM Last administered on 05/29/19at 09:28; Start 05/28/19 at 21:00; Stop 05/28/19 at 21:01; Status DC Pantoprazole Sodium (Protonix) 40 mg BIDAC PO Last administered on 05/30/19at 10:36; Start 05/29/19 at 16:30 Iron Sucrose 200 mg/Sodium Chloride 110 ml @ 55 mls/hr 1X ONCE IV Last administered on 05/29/19at 11:33; Start 05/29/19 at 10:30; Stop 05/29/19 at 12:29; Status DC Ringer's Solution 1,000 ml @ 75 mls/hr [id number] IV Last administered on 05/29/19at 15:00; Start 05/29/19 at 15:00 Propofol 40 ml @ As Directed STK-MED ONCE IV ; Start 05/29/19 at 14:59; Stop 05/29/19 at 15:00; Status DC Lidocaine HCl (Lidocaine Pf 2% Vial) 5 ml STK-MED ONCE .ROUTE ; Start 05/29/19 at 15:00; Stop 05/29/19 at 15:00; Status DC Propofol 20 ml @ As Directed STK-MED ONCE IV ; Start 05/29/19 at 15:00; Stop 05/29/19 at 15:00; Status DC Active Scripts Active Reported Protonix (Pantoprazole Sodium) 20 Mg Tablet. 1 Tab PO DAILY Allergies Allergies: Coded Allergies: No Known Drug Allergies (Unverified , 05/28/19) ROS General: YES: Fatigue PSYCHOLOGICAL ROS: YES: Anxiety Eyes: No Blurry vision, No Decreased vision, No Double vision, No Dry eyes, No Excessive tearing, No Eye Pain, No Itchy Eyes, No Loss of vision, No Photophobia, No Scotomata, No Uses contacts, No Uses glasses, No Other HEENT: No: Heacaches, Visual Changes, Hearing change, Nasal congestion, Nasal discharge, Oral lesions, Sinus pain, Sore Throat, Epistaxis, Sneezing, Snoring, Tinnitus, Vertigo, Vocal changes, Other ALLERGY AND IMMUNOLOGY: No: Hives, Insect Bite Sensitivity, Itchy/Watery Eyes, Nasal Congestion, Post Nasal Drip, Seasonal Allergies, Other Hematological and Lymphatic: No: Bleeding Problems, Blood Clots, Blood Transfusions, Brusing, Night Sweats, Pallor, Swollen Lymph Nodes, Other Breast: No New/Changing Breast Lumps, No Nipple changes, No Nipple discharge, No Other Cardiovascular: No Chest Pain, No Palpitations, No Orthopnea, No Paroxysmal Noc. Dyspnea, No Edema, No Lt Headedness, No Other Gastrointestinal: No Nausea, No Vomiting, No Abdominal Pain, No Diarrhea, No Constipation, No Melena, No Hematochezia, No Other Genitourinary: No Dysuria, No Frequency, No Incontinence, No Hematuria, No Retention, No Discharge, No Urgency, No Pain, No Flank Pain, No Other, No , No , No , No , No , No , No Musculoskeletal: No Gait Disturbance, No Joint Pain, No Joint Stiffness, No Joint Swelling, No Muscle Pain, No Muscular Weakness, No Pain In:, No Swelling In:, No Other Neurological: No Behavorial Changes, No Bowel/Bladder ControlChng, No Confusion, No Dizziness, No Gait Disturbance, No Headaches, No Impaired Coord/balance, No Memory Loss, No Numbness/Tingling, No Seizures, No Speech Problems, No Tremors, No Visual Changes, No Weakness, No Other Skin: No Dry Skin, No Eczema, No Hair Changes, No Lumps, No Mole Changes, No M ottling, No Nail Changes, No Pruritus, No Rash, No Skin Lesion Changes, No Other, No Acne Physical Exam General: Alert, Oriented X3, Cooperative HEENT: Atraumatic Lungs: Clear to auscultation Heart: Regular rate Abdomen: Soft (obese) Extremities: No clubbing, No cyanosis Skin: No rashes Neuro: Normal speech, Strength at 5/5 X4 ext Psych/Mental Status: Mental status NL Vitals VITALS Vital Signs Date Time Temp Pulse Resp B/P (MAP) Pulse Ox O2 Delivery O2 Flow Rate FiO2 05/30/19 15:00 97.8 94 20 146/95 (112) 97 Room Air 97.8 Labs Labs Laboratory Tests Test 05/28/19 19:40 05/29/19 08:20 05/29/19 11:50 05/30/19 13:05 Hemoglobin 5.6 g/dL (12.0-15.5) 7.9 g/dL (12.0-15.5) 7.6 g/dL (12.0-15.5) 8.6 g/dL (12.0-15.5) Hematocrit 18.8 % (36.0-47.0) 25.6 % (36.0-47.0) 24.0 % (36.0-47.0) 27.9 % (36.0-47.0) Mean Corpuscular Hemoglobin Concent 30 g/dL (31-37) 31 g/dL (31-37) 32 g/dL (31-37) 31 g/dL (31-37) White Blood Count 6.4 x10^3/uL (4.0-11.0) 5.6 x10^3/uL (4.0-11.0) Red Blood Count 3.47 x10^6/uL (3.50-5.40) 3.27 x10^6/uL (3.50-5.40) Mean Corpuscular Volume 74 fL (79-100) 73 fL (79-100) Mean Corpuscular Hemoglobin 23 pg (25-35) 23 pg (25-35) Red Cell Distribution Width 26.7 % (11.5-14.5) 27.1 % (11.5-14.5) Platelet Count 167 x10^3/uL (140-400) 176 x10^3/uL (140-400) Neutrophils (%) (Auto) 80 % (31-73) 74 % (31-73) Lymphocytes (%) (Auto) 11 % (24-48) 16 % (24-48) Monocytes (%) (Auto) 8 % (0-9) 8 % (0-9) Eosinophils (%) (Auto) 1 % (0-3) 1 % (0-3) Basophils (%) (Auto) 1 % (0-3) 1 % (0-3) Neutrophils # (Auto) 5.1 x10^3/uL (1.8-7.7) 4.1 x10^3/uL (1.8-7.7) Lymphocytes # (Auto) 0.7 x10^3/uL (1.0-4.8) 0.9 x10^3/uL (1.0-4.8) Monocytes # (Auto) 0.5 x10^3/uL (0.0-1.1) 0.4 x10^3/uL (0.0-1.1) Eosinophils # (Auto) 0.1 x10^3/uL (0.0-0.7) 0.1 x10^3/uL (0.0-0.7) Basophils # (Auto) 0.1 x10^3/uL (0.0-0.2) 0.1 x10^3/uL (0.0-0.2) Sodium Level 139 mmol/L (136-145) Potassium Level 4.3 mmol/L (3.5-5.1) Chloride Level 103 mmol/L (98-107) Carbon Dioxide Level 26 mmol/L (21-32) Anion Gap 10 (6-14) Blood Urea Nitrogen 11 mg/dL (7-20) Creatinine 0.7 mg/dL (0.6-1.0) Estimated GFR (Cockcroft-Gault) 90.5 Glucose Level 88 mg/dL (70-99) Calcium Level 7.8 mg/dL (8.5-10.1) Laboratory Tests Test 05/30/19 13:05 Hemoglobin 8.6 g/dL (12.0-15.5) Hematocrit 27.9 % (36.0-47.0) Mean Corpuscular Hemoglobin Concent 31 g/dL (31-37) Assessment/Plan Assessment/Plan 43 year old female with anemia, hiatal hernia, GERD. I reviewed with her details regarding surgical treatment for the hiatal hernia. Recommend that she be off of tobacco (cigarettes and marijuana) for at least 4 weeks prior to surgery, and she understands and seems motivated. OK to discharge with FU in my office [phone]. Consider director social to apply for medicaid. CHRISTINE VAUGHN MD May 30, 2019 16:37
[2019-05-30 19:30] VITALS: BP 113/59
[2019-05-30 23:52] VITALS: BP 135/92
[2019-05-31 03:09] VITALS: BP 144/101
[2019-05-31 07:39] VITALS: BP 124/82
[2019-05-31] MEDS: PANTOPRAZOLE 40 MG TABLET.DR. PO SCH (08:23)
[2019-05-31 11:08] VITALS: BP 141/98
--- NOTE | 2019-05-31 11:19 | PDOC ---
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 Objective Objective Vital Signs Date Time Temp Pulse Resp B/P (MAP) Pulse Ox O2 Delivery O2 Flow Rate FiO2 05/31/19 11:08 97.5 103 20 141/98 (112) 95 Room Air 97.5 Intake and Output 05/31/19 07:00 Intake Total 880 ml Balance 880 ml Intake Oral 880 ml # Voids 5 Assessment Assessment Problems Medical Problems: (1) Elevated brain natriuretic peptide (BNP) level Status: Acute (2) Hypoalbuminemia Status: Acute (3) Severe anemia Status: Acute A/P 43y admitted for severe anemia 1.) Menorrhagia not active bleeding, expectant management at this time. Wood be a good candidate for a progesterone-only contraception that can be placed on an outpt basis. If pt unable to obtain health insurance [facility] or [facility] would be able to provide services. 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 Labs Laboratory Tests Test 05/29/19 11:50 05/30/19 13:05 White Blood Count 5.6 x10^3/uL (4.0-11.0) Red Blood Count 3.27 x10^6/uL (3.50-5.40) Hemoglobin 7.6 g/dL (12.0-15.5) 8.6 g/dL (12.0-15.5) Hematocrit 24.0 % (36.0-47.0) 27.9 % (36.0-47.0) Mean Corpuscular Volume 73 fL (79-100) Mean Corpuscular Hemoglobin 23 pg (25-35) Mean Corpuscular Hemoglobin Concent 32 g/dL (31-37) 31 g/dL (31-37) Red Cell Distribution Width 27.1 % (11.5-14.5) Platelet Count 176 x10^3/uL (140-400) Neutrophils (%) (Auto) 74 % (31-73) Lymphocytes (%) (Auto) 16 % (24-48) Monocytes (%) (Auto) 8 % (0-9) Eosinophils (%) (Auto) 1 % (0-3) Basophils (%) (Auto) 1 % (0-3) Neutrophils # (Auto) 4.1 x10^3/uL (1.8-7.7) Lymphocytes # (Auto) 0.9 x10^3/uL (1.0-4.8) Monocytes # (Auto) 0.4 x10^3/uL (0.0-1.1) Eosinophils # (Auto) 0.1 x10^3/uL (0.0-0.7) Basophils # (Auto) 0.1 x10^3/uL (0.0-0.2) Laboratory Tests Test 05/30/19 13:05 Hemoglobin 8.6 g/dL (12.0-15.5) Hematocrit 27.9 % (36.0-47.0) Mean Corpuscular Hemoglobin Concent 31 g/dL (31-37) Microbiology 05/28/19 Urine Culture - Final, Complete 05/28/19 Urine Culture Result 1 (KOLBY) - Final, Complete Medications Current Medications Pantoprazole Sodium (PROTONIX VIAL for IV PUSH) 40 mg 1X ONCE IVP Last administered on 05/28/19at 10:08; Start 05/28/19 at 09:45; Stop 05/28/19 at 09:46; Status DC Ondansetron HCl (Zofran) 4 mg 1X ONCE IV Last administered on 05/28/19at 10:07; Start 05/28/19 at 09:45; Stop 05/28/19 at 09:46; Status DC Sodium Chloride 1,000 ml @ 100 mls/hr Q10H IV Last administered on 05/29/19at 08:03; Start 05/28/19 at 11:00; Stop 05/29/19 at 10:59; Status DC Pantoprazole Sodium 80 mg/ Sodium Chloride 100 ml @ 10 mls/hr Q10H IV Last administered on 05/29/19at 09:26; Start 05/28/19 at 12:00; Stop 05/29/19 at 09:53; Status DC Iohexol (Omnipaque 300 Mg/ml) 75 ml 1X ONCE IV Last administered on 05/28/19at 16:20; Start 05/28/19 at 14:00; Stop 05/28/19 at 14:01; Status DC Info (CONTRAST GIVEN -- Rx MONITORING) 1 each PRN DAILY PRN MC SEE COMMENTS; Start 05/28/19 at 14:00; Stop 05/30/19 at 13:59; Status DC Influenza Virus Vaccine Quadrival (Afluria Quad 2019-20 (3yr Up) Syringe) 0.5 ml ONCE ONCE VAX IM Last administered on 05/29/19at 09:28; Start 05/28/19 at 21:00; Stop 05/28/19 at 21:01; Status DC Pantoprazole Sodium (Protonix) 40 mg BIDAC PO Last administered on 05/31/19at 08:23; Start 05/29/19 at 16:30 Iron Sucrose 200 mg/Sodium Chloride 110 ml @ 55 mls/hr 1X ONCE IV Last administered on 05/29/19at 11:33; Start 05/29/19 at 10:30; Stop 05/29/19 at 12:29; Status DC Ringer's Solution 1,000 ml @ 75 mls/hr [id number] IV Last administered on 05/29/19at 15:00; Start 05/29/19 at 15:00; Stop 05/30/19 at 23:46; Status DC Propofol 40 ml @ As Directed STK-MED ONCE IV ; Start 05/29/19 at 14:59; Stop 05/29/19 at 15:00; Status DC Lidocaine HCl (Lidocaine Pf 2% Vial) 5 ml STK-MED ONCE .ROUTE ; Start 05/29/19 at 15:00; Stop 05/29/19 at 15:00; Status DC Propofol 20 ml @ As Directed STK-MED ONCE IV ; Start 05/29/19 at 15:00; Stop 05/29/19 at 15:00; Status DC Active Scripts Active Reported Protonix (Pantoprazole Sodium) 20 Mg Tablet. 1 Tab PO DAILY Vitals/I & O Vital Sign - Last 24 Hours 1/8/20 05/30/19 05/30/19 05/30/19 11:58 15:00 19:30 20:05 Temp 98.2 97.8 98.2 98.2 97.8 98.2 Pulse 91 94 85 Resp 18 20 16 B/P (MAP) 136/107 (117) 146/95 (112) 113/59 (77) Pulse Ox 98 97 94 O2 Delivery Room Air Room Air Room Air Room Air 05/30/19 05/31/19 05/31/19 05/31/19 23:52 03:09 07:39 11:08 Temp 98.3 97.5 97.5 97.5 98.3 97.5 97.5 97.5 Pulse 90 77 87 103 Resp 16 16 18 20 B/P (MAP) 135/92 (106) 144/101 (115) 124/82 (96) 141/98 (112) Pulse Ox 94 95 95 95 O2 Delivery Room Air Room Air Room Air Room Air Intake and Output 05/30/19 05/30/19 05/31/19 15:00 23:00 07:00 Intake Total 200 ml 200 ml 480 ml Balance 200 ml 200 ml 480 ml JULISSA SLATER MD May 31, 2019 11:19
--- NOTE | 2019-05-31 11:27 | PDOC ---
Subjective: Subjective: Ready to go home. Eating w/o issue. Objective: Vital Signs: Vital Signs Date Time Temp Pulse Resp B/P (MAP) Pulse Ox O2 Delivery O2 Flow Rate FiO2 05/31/19 11:08 97.5 103 20 141/98 (112) 95 Room Air 97.5 Labs: Laboratory Tests Test 05/30/19 13:05 Hemoglobin 8.6 g/dL Hematocrit 27.9 % Mean Corpuscular Hemoglobin Concent 31 g/dL PE: GEN: NAD LUNGS: CTAB HEART: RRR ABD: NABS, S/ND/NT NEURO/PSYCH: A & O 3 A/P: ERICA, large hiatal hernia, GERD - surg recs to be off tobacco and marijuana x 4 weeks, encouraged Medicaid Menorrhagia, uterine fibroids - REED REPAIRER following, ?progesterone only contraception as outpt -- DC per primary. Follow-up w/ Dr. Nguyen and Dr. Salter. Continue PPI and iron - discussed w/ her. Use Miralax PRN for constipation. ADRI OLIVARES May 31, 2019 11:27
--- NOTE | 2019-05-31 13:32 | PDOC ---
[facility] PROGRESS NOTE Chief Complaint Chief Complaint Generalized Weakness Microcytic anemia Hital hernia GERD Admits to Recent Methamphetamine and marijuana use Elevated BNP History of Present Illness History of Present Illness 05/31/19 Pt seen and examined Pt was laying in bed and was pleasant and conversant during meeting saying she was comfortable. Pt still complained of SOB. Pt denies abdominal pain or discomfort. Pt mentioned she was anxious to be discharged. Pt's chart was reviewed. [facility] nurse 05/30/19 Pt seen and examined Pt was laying in bed and was pleasant and conversant during meeting Pt complained of SOB. Pt denied any abdominal pain. Pt's chart was reviewed. [facility] nurse. 05/29/19 Pt seen and examined Pt was laying in bed, was pleasant and conversant during meeting. Pt was fatigued Pt denies any chest pain, n/v [facility] nurse Vitals/I&O Vitals/I&O: Vital Signs Date Time Temp Pulse Resp B/P (MAP) Pulse Ox O2 Delivery O2 Flow Rate FiO2 05/31/19 11:08 97.5 103 20 141/98 (112) 95 Room Air 97.5 I & O 05/30/19 05/30/19 05/31/19 15:00 23:00 07:00 Intake Total 200 ml 200 ml 480 ml Balance 200 ml 200 ml 480 ml Physical Exam General: Alert, Oriented X3, Cooperative Heart: Regular rate, No murmurs Lungs: Clear Abdomen: Soft (obese) Extremities: No clubbing, No cyanosis Skin: No rashes Review of Systems Review of Systems: Gen: denies f/c GI: denies abdominal pain, n/v Extremities: denies pain in UE/ LE Resp: pt admits to SOB Assessment and Plan Assessmemt and Plan Assement Generalized Weakness Microcytic anemia GERD Hiatal Hernia Admits to Recent Methamphetamine and marijuana use Elevated BNP Polysubstance abuse Constipation Plan Generalized weakness possibly secondary to anemia- pt given 4 units of prbc portillo sfusions and iron supplementation Trend hgb Perform repeat iron study- trend iron/ tibc/ sat GI Consulted and following regarding- Large hiatal hernia with intrathoracic positioning of a portion of the stomach and pancreas. This is similar compared to the CT dated 11/08/2017. And, possible GI bleed Continue PPI and iron Use Miralax PRN for constipation. Surgery consulted and following regarding hernia Elevated BNP- could be secondary to hiatal hernia DVT ppx Pt admitts to marijuana and meth use- cessation counseling recommended. Full code OB consulted regardign menorrhagia and fibroids as possible cause for exacerbation of mentrual bleeding- pt is open to change to progesterone based ocp- fu as outpt Possible DC- surgery- per Dr. Nguyen: "Recommend that she be off of tobacco (cigarettes and marijuana) for at least 4 weeks prior to surgery, and she understands and seems motivated. OK to discharge with FU in my office [phone]. Consider social work assistant to apply for medicaid." Comment Review of Relevant I have reviewed the following items jesus (where applicable) has been applied. ELISA BRUNO III DO May 31, 2019 13:32
--- NOTE | 2019-05-31 15:07 | PATHOLOGY ---
[facility] Accession Number: [id number] . 01 Material submitted: . esophagus - DISTAL ESOPHAGUS BIOPSY. Modifiers: distal . 01 Clinical history: . Anemia rule out Siddiqui's . 02 Diagnosis: Esophageal biopsies, distal esophagus: - Few segments of hyperplastic squamous esophageal mucosa with predominant segments of granulation tissue showing acute and chronic inflammation. See comment. . (JPM:antione; 05/31/2019) S 05/31/2019 1430 Local . 02 Comment: Sections of the distal esophageal biopsy predominantly reveal segments of acutely and chronically inflamed granulation tissue. There are a few segments of hyperplastic squamous esophageal mucosa. There are no viral inclusons identified. The findings are consistent with reflux esophagitis with ulceration or esophageal ulcer. There is no evidence of Siddiqui's change, dysplasia, or malignancy. . (JPM:antione; 05/31/2019) . 02 Electronically signed: . Calvin Mathur MD, Pathologist NPI- [id number] . 01 Gross description: . The specimen is received in formalin, labeled "Nupp, Tiffanie, distal esophagus BX" and consists of multiple fragments of lacy tissue measuring 0.8 x 0.6 x 0.2 cm in aggregate which are entirely submitted in A1. (SDY; 05/30/2019) SYU/SYU 05/30/2019 1659 Local . 02 Pathologist provided ICD-10: K20.9 . 02 CPT . 284467 Specimen Comment: A courtesy copy of this report has been sent to [phone], [phone] Specimen Comment: [phone] Specimen Comment: Report sent to / DR MANN Performed at: 01 [facility] [address], [place] [id number] MD Terence Restrepo MD Phone: [phone] Performed at: [address] [id number] MD Calvin Mathur MD Phone: [phone]
[2019-05-31 15:10] VITALS: BP 129/89
--- NOTE | 2019-05-31 16:43 | NUR ---
Discharge Note: JAMAR INIGUEZ [facility] Discharge instructions and discharge home medications reviewed with patient and a copy given. All questions have been answered and understanding verbalized. The following instructions and handouts were given: handouts on anemia, iron deficiency anemia, Endoscopy care after Follow up with Dr. Nguyen in his office for surgery scheduling. Follow up with [facility] as out patient. Follow up with PCP in a week. Watch out for bleeding, body weakness, fainting, lightheadedness, Call MD. Discontinued lines and drains: peripheral IV intact, patient tolerated removal, no complications noted. Patient discharged to home with self-care ambulatory. She left the unit at 1630.
--- NOTE | 2019-06-01 10:07 | DS ---
DATE OF DISCHARGE: 05/31/2019 ADMISSION DIAGNOSIS: Anemia. DISCHARGE DIAGNOSES: 1. Resolving anemia with erosive gastritis and esophagitis noted on EGD. 2. Incidental finding of a hiatal hernia that is large enough that it has actually pulled the pancreas up above the diaphragm as well. CONSULTS: General Surgery and GI. PROCEDURES: EGD. HOSPITAL COURSE: The patient is a pleasant middle-aged female, who presented with anemia. We transfused 4 units. Because she was in the 4 range, we got her up to above 7. EGD did show erosive gastritis and esophagitis. Interestingly, she also had a hiatal hernia that was large enough that it pulled some of the pancreas above the diaphragm. She is eventually going to need a surgical correction of this. We did consult General Surgery. They want her to stop smoking for 4 weeks and then they will consider elective surgery. DISPOSITION: Home. ACTIVITY: As tolerated. DIET: Low sodium. MEDICATIONS: Please see the MRAD. TOTAL TIME: 32 minutes. ELISA BRUNO DO DR: JAMAL/colin JOB#: [id number] / [id number]
== END 2019-05-31 16:21 | disposition home or self-care (01) | DRG 392 ==
LOC: ER 09:04 → ED HOLD 10:05 → 6 SOUTH 15:15
PROVIDERS: ADMIT Family Medicine; ATTEND Family Medicine
PROC: 0DB38ZX Excision of Lower Esophagus, Via Natural or Artificial Opening Endoscopic, Diagnostic (ICD-10-PCS; 2019-05-29)
PROC: 30233N1 Transfusion of Nonautologous Red Blood Cells into Peripheral Vein, Percutaneous Approach (ICD-10-PCS; principal; 2019-05-29 16:30)
DX: K21.0 Gastro-esophageal reflux disease with esophagitis (principal); J98.11 Atelectasis; D25.9 Leiomyoma of uterus, unspecified; K44.9 Diaphragmatic hernia without obstruction or gangrene; K29.60 Other gastritis without bleeding; E66.01 Morbid (severe) obesity due to excess calories; D50.9 Iron deficiency anemia, unspecified; F17.210 Nicotine dependence, cigarettes, uncomplicated; F19.10 Other psychoactive substance abuse, uncomplicated; D50.0 Iron deficiency anemia secondary to blood loss (chronic); F12.90 Cannabis use, unspecified, uncomplicated; N92.0 Excessive and frequent menstruation with regular cycle; K59.00 Constipation, unspecified; N85.4 Malposition of uterus; Z68.36 Body mass index [BMI] 36.0-36.9, adult; Z87.11 Personal history of peptic ulcer disease; Z82.49 Family history of ischemic heart disease and other diseases of the circulatory system
CPT/HCPCS: 36415; 43239; 71045; 71260; 76856; 80048; 80053; 80307; 81001; 81025; 82274; 82607; 83540; 83550; 83690; 83880; 84484; 85014; 85018; 85025; 85045; 85610; 85730; 86850; 86900; 86901; 86920; 86922; 87086; 88305; 90471; 90686; 93005; 96374; 96375; C9113; J1756; J2001; J2405; J2704; J7030; J7120; P9016; Q9967; 99285-25; G0378